=== PATIENT | female | born 1980 | race Caucasian/White ===

== ENCOUNTER 2020-08-25 13:36 | Outpatient (CLI) | payer MEDICARE, MEDICAID, SELFPAY ==
[2020-08-25 16:13] LABS: Basophils # 0.1 10^3/uL (0.0-0.1); Eosinophils % 0.4 %; Hematocrit 32.5 % (37.0-47.0); Hemoglobin 10.1 g/dL (11.5-15.3); Lymphocytes # 1.4 10^3/uL (0.8-4.8); Lymphocytes % 28.3 %; Mean Corpuscular HGB Conc 31.1 g/dL (30.0-36.0); Mean Corpuscular Hemoglobin 31.4 pg (28.0-34.0); Mean Corpuscular Volume 100.9 fL (81-99); Mean Platelet Volume 9.3 fL (7.4-10.4); Monocytes # 0.4 10^3/uL (0.2-0.9); Monocytes % 7.1 %; Neutrophils # 3.09 10^3/uL (1.8-7.7); Nucleated Red Blood Cells % 0 %; Platelet Count 421 10^3/cmm (130-400); Red Blood Count 3.22 10^6/uL (4.1-5.3); Red Cell Distribution Width 18.9 % (12.1-15.1); White Blood Count 4.9 10^3/uL (4.0-10.0)
[2020-08-25 16:51] LABS: Alanine Aminotransferase 18 U/L (0-33); Alkaline Phosphatase 75 IU/L (35-105); Anion Gap 12.3 (5-19); Aspartate Amino Transferase 28 U/L (0-32); Blood Urea Nitrogen 10 mg/dL (6-20); Calcium 9.4 mg/dL (8.5-10.5); Carbon Dioxide 28 mmol/L (22-29); Chloride 101 mmol/L (98-107); Globulin 2.8 g/dL (1.3-4.6); Glucose 89 mg/dL (65-115); Homocysteine 17.55; Osmolality Calculated 283 mOsm/kg (285-295); Potassium 4.3 mmol/L (3.5-5.1); Sodium 137 mmol/L (136-145); Total Bilirubin 0.2 mg/dL (0.15-1.2); Total Protein 6.8 g/dL (6.6-8.7); Vitamin B12 309 pg/mL (232-1245)
--- NOTE | 2020-08-25 18:14 | ONC CON_ITS ---
Dr. Guillen New Patient Note Patient: Nancy Nichols Unit #: [id number]: 1980 Dicatated By: Isaias Guillen M.D.Date of Visit: Aug 25, 2020 Onc MED New Patient/Consult Referring Physician: Brenda Diaz Chief Complaint: Anemia. History of Present Illness: This is a 40-year-old woman with iron deficiency anemia. She recalls having first become anemic at age 13 in association with heavy menstrual bleeding. It eventually did improve, though she said that she always stayed mildly anemic. Her anemia then worsened following her gastric bypass procedure in 2002. At some point she was found to have B12 deficiency and for a while she was on B12 injections. She was subsequently transitioned to sublingual B12. She also has been on oral iron supplementation, though not on a consistent basis. On 05/28/2020 she was seen by Gabriella Gamble with complaints of swelling in both legs. Her laboratory studies at that time included CBC which showed hemoglobin low at 8.8 g with hematocrit 29%. The red cell indices were in the upper normal range. The white blood cell count was mildly decreased at 3200. The platelet count was normal at 255,000. Comprehensive metabolic profile showed normal renal function with BUN 15 and creatinine 0.60 mg/dL. Albumin was slightly low at 3.2 g/dL. SGOT was slightly elevated at 40/37 U/L. The bilirubin and the other liver enzymes were normal. Her further laboratory studies from 06/04/2020 included serum iron studies which showed low transferrin saturation at 2.5% and serum ferritin which was low at 8 ng/mL, consistent with iron deficiency. The B12 level was normal at 509 pg/mL and the folate level was normal at 5.0 ng/mL. She complains that she is tired. She works part-time, but she otherwise does not have much activity. Her ECOG score is 1. Her appetite was down for a while and her weight dropped about 30 pounds, but that subsequently improved and she regained 20 pounds. She has not had fever. She does have hot flashes and sweating. She is short of breath with activity. She does not complain of cough and she has not been having chest pain. She has had constipation, though her bowel function recently has been better. She has no other GI complaints. In particular, she has not been aware of any blood in the stool. She has had some urinary urgency/incontinence, but that has also improved. She has chronic pain, and she says she hurts all the time. Her pain is mainly in the neck, lower back, and legs. She occasionally has bad headaches. She reports having numbness all the time, and she also complains that her skin has been very sensitive to touch. Past Medical History: Her medical history includes degenerative disease of the spine, history of B12 deficiency, and history of gastric bypass. Past Surgical History: Her surgical/procedural history includes pilonidal cyst excisions in 1993 and in 2000, cholecystectomy in 2015, hysterectomy/bilateral salpingectomy-oophorectomy in 2012, cervical fusion in 2006, lumbar laminectomy in 2004, gastric bypass in 2002, and D&C in 1993. Medications: Acetaminophen PM (500-25 mg) Tablet Oral at bedtime, Cyclobenzaprine HCl (10 mg) Tablet Oral t.i.d., Estrace Tablet Oral, traMADol HCl Tablet Oral, Triamterene-HCTZ Tablet Oral Allergies: No Known Allergies. Social History: Ms. 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 She has on partial disability. She has history of smoking for 24 years, less than 1 pack of cigarettes daily. She currently smokes from 6 to 12 cigarettes/day. 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 Since then she has had occasional, binge type drinking for several days at a time. She denies illicit drug use. Family History: Both parents are still living, father at age 74 and mother at age 66. His known cerebral aneurysm and hypertension. She has undergone aortic valve surgery. Her only sibling is a 45-year-old brother who has been treated for cardiac arrhythmia. Her maternal grandmother also had a cerebral aneurysm. Review Of Symptoms: Constitutional - She has been feeling tired. Her activity is limited, but she is able to do light work. Her appetite was down, and her weight had dropped about 30 pounds. It is better now, though, and she is regained 20 pounds. She has not had fever. She does have hot flashes and sweating. ECOG score is 1, Eyes - She has had blurred vision, ENMT - No hearing loss or tinnitus. No sinus congestion/drainage. Her mouth has been sore. No sore throat or difficulty swallowing, Hematologic/Lymphatic - No abnormal bruising or bleeding, Respiratory - She has shortness of breath with activity. No cough. No pleuritic pain or hemoptysis, Cardiovascular - No angina pain. No palpitations, Gastrointestinal - No nausea or vomiting. No heartburn or acid reflux. She has had some constipation, but her bowels lately have been okay. No blood in the stool or black stools, Genitourinary (F) - She has had some urinary urgency and incontinence. Her bladder function recently has been better, though, Musculoskeletal - She has chronic pain. She says she hurts all the time. The pain is mainly in the neck, lower back, and legs, Integumentary - No skin rash or other skin changes, Neurologic - She has occasional bad headaches. She sometimes has dizziness. She has numbness in her hands and feet. She also complains that her skin is very sensitive to touch, Psychiatric - No anxiety or depression. She has difficulty sleeping. Vital Signs: Performed on Aug 25, 2020 14:56: 6, 5, 0.00, 0.00 sq.m, 100 %, 77 /min, 18 /min, 126/93 mm(hg), 97.9 F (LOW), and 170.2 lbs (HIGH). Physical Examination: Constitutional - She looks pretty good generally, Eyes - Sclerae nonicteric. Conjunctivae clear, ENMT - There is a slight coating on the tongue. There are no other lesions noted in the oral cavity, Neck - No mass or thyromegaly, Hematologic/Lymphatic - No cervical, clavicular, or axillary adenopathy, Respiratory - Lungs are clear with good air movement bilaterally, Cardiovascular - Heart rhythm is regular. There is no murmur, gallop, or rub noted, Abdomen - Sof. Liver and spleen are not enlarged. There is no abdominal mass or ascites noted and there is no inguinal adenopathy, Extremities - Mild lower extremity edema. Pedal pulses are palpable bilaterally. There is a small, firm nodule palpable on the lateral aspect of the left foot, Integumentary - No rashes. No suspicious skin lesions noted, Neurologic - No focal neurologic deficits noted. Problem List: 1. Iron deficiency anemia. This is most likely due to inadequate oral iron absorption in association with gastric bypass. 2. She has a history of B12 deficiency for which she currently is on sublingual B12 replacement. 3. 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 Problems Addressed with this Encounter and Plan: 1. Iron deficiency anemia. This is most likely due to inadequate oral iron absorption in association with gastric bypass. GI blood loss also needs to be excluded, but appears to be unlikely. I will repeat her CBC and CMP today, but if the anemia is not correcting on oral iron supplementation, she will be given parenteral iron replacement with 2 infusions of Feraheme, subject to verification of insurance coverage. She also will bring in a stool sample for IFOB. She will have further evaluation as indicated. 2. She has a history of B12 deficiency for which she has been on sublingual B12 replacement. I am also going to recheck B12 and folate levels along with methylmalonic acid and homocystine levels. 3. She appears to have some mild oral candidiasis. It will be treated with oral nystatin. Signed By: Isaias Guillen M.D. <<Signature on File>>
[2020-08-30 09:42] LABS: Methylmalonic Acid 121 nmol/L (87-318)
== END 2020-08-25 13:37 | disposition home or self-care (01) ==
LOC: ONCMED 13:41
PROVIDERS: Family Provider Family Medicine; PCP Nurse Practitioner Family; Visit Provider Internal Medicine Medical Oncology
DX: D50.9 Iron deficiency anemia, unspecified (principal); E53.8 Deficiency of other specified B group vitamins; M48.9 Spondylopathy, unspecified; B37.0 Candidal stomatitis; R53.83 Other fatigue; F17.210 Nicotine dependence, cigarettes, uncomplicated; Z98.84 Bariatric surgery status; Z72.89 Other problems related to lifestyle
CPT/HCPCS: 36415; 80053; 82607; 83090; 83921; 84443; 85025; 99205

== ENCOUNTER 2020-09-05 09:50 | Emergency (ER) | payer MEDICARE, MEDICAID, SELFPAY ==
[2020-09-05 09:52] VITALS: BP 128/91; PULSE 92; RESP 16; TEMP 36.7; O2SAT 100; BMI 24.3
[2020-09-05 09:58] VITALS: BP 121/94; PULSE 93; RESP 16; O2SAT 100
--- NOTE | 2020-09-05 09:59 | ED_ITS ---
HPI - Anxiety General: Chief Complaint: Anxiety Stated Complaint: ANXIETY Time Seen by Provider: 09/05/20 09:52 History of Present Illness: HPI narrative: Patient is a 40-year-old female who comes to the ED via EMS with anxiety attack. EMS gave patient a dose of Ativan and upon arrival to ED her symptoms have resolved. Patient states she has a history of anxiety attacks and has alprazolam at home for acute anxiety. Patient says that she developed symptoms at work after she had a stressful conversation with her boss. After that conversation she started developing chest pain, shortness of breath, tingling sensation in the body and nausea. Here in the ED patient symptoms have completely resolved and says that after she got the Ativan in the ambulance she started feeling a lot better. She has a scheduled appointment with her PCP Dr. Guillne on September 09. Associated symptoms: Deny chest pain, chills, fever(s), headache(s), nausea, palpitations or vomiting Review of Systems Const: Denies: fever(s), chills or fatigue Eyes: Denies: change in vision or eye discomfort ENMT: Denies: throat pain, odynophagia, nasal discharge or nasal congestion Card: Denies: chest pain, palpitations, edema, swelling of feet/ankles, dyspnea on exertion or orthopnea Resp: Denies: dyspnea, productive cough or non-productive cough GI: Denies: abdominal pain, nausea, vomiting, diarrhea, constipation or hematochezia : Denies: flank pain, dysuria or hematuria Musc: Denies: neck pain, back pain or extremity swelling Skin/Breast: Denies: rash or new lesions Neuro: Denies: headache(s), numbness in extremities or weakness in extremities Psych: Reports: anxiety and panic attacks Physical Exam Const: COMMON NORMALS: no acute distress, patient oriented x3 and alert GENERAL APPEARANCE: cooperative and comfortable HENMT: COMMON NORMALS: normocephalic HEAD & SCALP: normocephalic MOUTH: Normal oral and palatal mucosa present THROAT: posterior oropharynx normal and uvula midline Neck/C-Spine: COMMON NORMALS: supple GENERAL: Yes normal visual inspection Resp: COMMON NORMALS: normal respiratory effort, No retractions, No use of a ccessory muscles and clear to auscultation bilaterally EFFORT & INSPECTION: Yes able to speak in complete sentences, No tachypneic, No respiratory distress and No labored AUSCULTATION: clear to auscultation bilaterally Cardio: COMMON NORMALS: regular rate, regular rhythm, S1 normal heart sound present, S2 normal heart sound present, No gallops present (Cardio), No clicks present (Cardio), No murmurs present (Cardio) and Peripheral pulses 2+ throughout RATE: regular rate RHYTHM: regular rhythm HEART SOUNDS: S1 normal heart sound present and S2 normal heart sound present PERIPHERAL PULSES: Peripheral pulses 2+ throughout GI: COMMON NORMALS: Normal to inspection, nondistended, normoactive bowel sounds present, Soft to palpation, non-tender and no masses PALPATION: Yes Soft to palpation : COMMON NORMALS: Yes no CVA tenderness BLADDER/KIDNEY EXAM: Yes no CVA tenderness Back/Pelvis: COMMON NORMALS: no CVA tenderness Extremity: COMMON NORMALS: normal to inspection and no pedal edema Neuro: COMMON NORMALS: patient oriented x3 and moves all extremities SENSORIUM/ORIENTATION: Yes alert Skin: GENERAL SKIN EXAM: dry skin Course Vital Signs: Vital signs: Vital Signs Temperature 98.1 F 09/05/20 09:52 Pulse Rate 101 H 09/05/20 11:32 Respiratory Rate 18 09/05/20 11:32 Blood Pressure 125/94 09/05/20 11:32 Pulse Oximetry 98 09/05/20 11:32 MDM - Anxiety MDM Narrative: Medical decision making narrative: Patient is a 40-year-old female comes to the ED with anxiety attack. Patient has a history of panic attacks. Patient developed symptoms of chest pain, nausea, shortness of breath and tingling sensation over body after having a stressful conversation with her boss. She was brought in here via EMS and they gave her a dose of Ativan while in route and patient's symptoms completely resolved. Here in the ED patient is sitting comfortably on exam bed and in no acute distress and reports symptoms have resolved. EKG showed normal sinus rhythm with no other acute findings. Patient was diagnosed with anxiety attack and discharged home. She is told to follow-up with her PCP at her next scheduled appointment. Return to ED precautions given. Patient understood and agree with plan. EKG Data^: EKG 1: Attestation: I personally reviewed and interpreted this EKG as follows: EKG interpretation date: 09/05/20 Interpretation: Normal sinus rhythm, 89 bpm, no ST segment elevation or depression seen. Discharge Plan Discharge Patient Disposition: Home Clinical Impression: Acute anxiety Condition: Stable Discharge Orders: Discharge ED (Routine); Ordered 09/05/20 Ordered By: Calvin Guevara Referrals: Chacha Enriquez APN [Primary Care Provider] - Discharge Diet: Regular Discharge Activity: Resume usual activity Patient Instructions: Anxiety (ED), Panic Attack Activity Restrictions/Additional Instructions: Follow-up with your PCP at your scheduled appointment next week for reevaluation. Continue taking all previously prescribed home medications. Return to the ER or your medical provider if condition worsens. Please read and understand discharge instructions. If any questions, please ask. Coding Level of Care Code ED Senior Government Program Analyst for [employer] Exam Comprehensive
--- NOTE | 2020-09-05 10:02 | ECG_ITS ---
[facility] Test Date: 2020-09-05 Pat Name: Nancy Nichols Department: Room: Gender: Female Rfid Developer: : 1980 Requested By: Calvin Guevara Order Number: [id number] Katelynn MD: Constantin Montalvo M.D. Measurements Intervals Hope Rate: 89 P: 66 TN: 150 QRS: 44 QRSD: 93 T: 54 QT: 336 QTc: 410 Interpretive Statements SINUS RHYTHM POSSIBLE RIGHT VENTRICULAR CONDUCTION DELAY [RSR (QR) IN V1/V2] No previous ECG available for comparison Electronically Signed On 09-05-2020 18:28:16 LSAT INSTRUCTOR by Constantin Montalvo M.D. [id number]
[2020-09-05 11:32] VITALS: BP 125/94; PULSE 101; RESP 18; O2SAT 98
[2020-09-05] MEDS: LORazepam 1 mg Tablet PO (11:33)
== END 2020-09-05 11:32 | disposition home or self-care (01) ==
PROVIDERS: Emergency Provider Physician Assistant; PCP Nurse Practitioner Family
DX: F41.9 Anxiety disorder, unspecified (principal)
CPT/HCPCS: 93005; 99283

== ENCOUNTER 2020-09-09 06:24 | Outpatient (CLI) | payer MEDICARE, MEDICAID, SELFPAY ==
[2020-09-09] MEDS: ferumoxytol (NON-ESRD) 510 MG in sodium chloride 0.9% (100 ml) 100 ML 351 MG IV (15:15)
== END 2020-09-09 06:25 | disposition home or self-care (01) ==
LOC: ONCMED 06:27
PROVIDERS: PCP Nurse Practitioner Family; Visit Provider Internal Medicine Medical Oncology
DX: D50.8 Other iron deficiency anemias (principal)
CPT/HCPCS: 96365; Q0138

== ENCOUNTER 2020-09-16 05:46 | Outpatient (CLI) | payer MEDICARE, MEDICAID, SELFPAY ==
[2020-09-16] MEDS: ferumoxytol (NON-ESRD) 510 MG in sodium chloride 0.9% (100 ml) 100 ML 351 MG IV (14:50)
== END 2020-09-16 05:47 | disposition home or self-care (01) ==
LOC: ONCMED 05:48
PROVIDERS: PCP Nurse Practitioner Family; Visit Provider Internal Medicine Hematology & Oncology
DX: D50.8 Other iron deficiency anemias (principal)
CPT/HCPCS: 96365; Q0138

== ENCOUNTER 2020-09-21 17:51 | Emergency (ER) | payer MEDICARE, SELFPAY ==
[2020-09-21 17:54] VITALS: BP 130/86; PULSE 112; RESP 18; TEMP 36.7; O2SAT 93; BMI 24.3
--- NOTE | 2020-09-21 18:55 | W.ED.BACK ---
HPI - Back Pain/Injury General: Chief Complaint: Back Pain/Injury Stated Complaint: PANIC ATTACK Time Seen by Provider: 09/21/20 18:23 History of Present Illness: HPI Narrative: Patient is a 40-year-old female comes to the ED with lower back pain and panic attack. Patient denies any acute injury to cause back pain states that she does have a chronic issue with lower back pain. She says the pain radiates down both legs. She says she often has panic attacks when she starts having more severe back pain. She says the panic and ask it triggered by the back pain. She is complaining of having some muscle spasms also in the lower back. Denies any bladder or bowel incontinence, pelvic anesthesia or weakness to lower extremities. Associated symptoms: Deny abdominal pain, chills, dysuria, fatigue, fever(s), hematuria, nausea or vomiting Review of Systems Const: Denies: fever(s), chills or fatigue Eyes: Denies: change in vision or eye discomfort ENMT: Denies: throat pain, odynophagia, nasal discharge or nasal congestion Card: Denies: chest pain, palpitations, edema, swelling of feet/ankles, dyspnea on exertion or orthopnea Resp: Denies: dyspnea, productive cough or non-productive cough GI: Denies: abdominal pain, nausea, vomiting, diarrhea, constipation or hematochezia : Denies: flank pain, dysuria or hematuria Musc: Reports: back pain; Denies: neck pain or extremity swelling Skin/Breast: Denies: rash or new lesions Neuro: Denies: headache(s), numbness in extremities or weakness in extremities Psych: Reports: anxiety Physical Exam Const: COMMON NORMALS: no acute distress, patient oriented x3 and alert GENERAL APPEARANCE: cooperative, comfortable and anxious HENMT: COMMON NORMALS: normocephalic HEAD & SCALP: normocephalic MOUTH: Normal oral and palatal mucosa present THROAT: posterior oropharynx normal and uvula midline Neck/C-Spine: COMMON NORMALS: supple GENERAL: Yes normal visual inspection Resp: COMMON NORMALS: normal respiratory effort, No retractions, No use of accessory muscles and clear to auscultation bilaterally AUSCULTATION: clear to auscultation bilaterally Cardio: COMMON NORMALS: regular rate, regular rhythm, S1 normal heart sound present, S2 normal heart sound present, No gallops present (Cardio), No clicks present (Cardio), No murmurs present (Cardio) and Peripheral pulses 2+ throughout RATE: regular rate RHYTHM: regular rhythm HEART SOUNDS: S1 normal heart sound present and S2 normal heart sound present PERIPHERAL PULSES: Peripheral pulses 2+ throughout GI: COMMON NORMALS: Normal to inspection, nondistended, normoactive bowel sounds present, Soft to palpation, non-tender and no masses PALPATION: Yes Soft to palpation : COMMON NORMALS: Yes no CVA tenderness BLADDER/KIDNEY EXAM: Yes no CVA tenderness Back/Pelvis: COMMON NORMALS: no CVA tenderness LUMBAR SPINE/LOWER BACK: Yes pain with ROM, Yes paraspinal muscle tenderness and Yes paraspinal muscle spasm Extremity: COMMON NORMALS: normal to inspection and no pedal edema Neuro: COMMON NORMALS: patient oriented x3 and moves all extremities SENSORIUM/ORIENTATION: Yes alert Skin: GENERAL SKIN EXAM: dry skin Course Vital Signs: Vital signs: Vital Signs Temperature 98.1 F 09/21/20 17:54 Pulse Rate 97 09/21/20 20:16 Respiratory Rate 18 09/21/20 20:16 Blood Pressure 139/92 09/21/20 20:16 Pulse Oximetry 98 09/21/20 20:16 MDM - Back Pain/Injury MDM Narrative: Medical decision making narrative: Patient is a 40-year-old female comes to the ED with lower anxiety, back pain and muscle spasms. Patient has acute on chronic lower back pain and she has pain that radiates down both right and left legs. Denies any acute trauma or injury to cause pain. Denies any cauda equina symptoms. Patient has lumbar paraspinal muscle tenderness. Lumbar spine x-ray shows no acute fractures but patient does have scoliosis. Patient was given some Ativan, Toradol and Solu-Medrol here in the ED. Her symptoms improved. Patient was discharged and diagnosed with acute anxiety and lumbar radiculopathy. She was told to follow-up with her PCP in 7 to 10 days for reevaluation. Return to ED precautions given. Patient understood and agree with plan. Imaging Data^: Xray Ortho: Attestation: I personally reviewed and interpreted this imaging study as follows: My impression: Lumbar spine x-ray?no acute fractures seen. Patient does have scoliosis. Discharge Plan Discharge Patient Disposition: Home Clinical Impression: Lumbar radiculopathy, Acute anxiety Condition: Stable Prescriptions: New Medrol (Stewart) 4 mg tablets,dose pack See Rx Instructions .ROUTE .COMPLEX Qty: 21 RF: 0 Discharge Orders: Discharge ED (Routine); Ordered 09/21/20 Ordered By: Calvin Guevara Referrals: Chacha Enriquez APN [Primary Care Provider] - Discharge Diet: Regular Discharge Activity: Increase activity as tolerated Patient Instructions: Lumbar Radiculopathy (ED), Anxiety (ED) Activity Restrictions/Additional Instructions: Follow-up with medical provider as directed in 7 to 10 days for reevaluation. Take medications as prescribed. Continue taking all your previously prescribed home meds. Apply cold pack or heat on back to help with symptoms. Return to the ER or your medical provider if condition worsens. Please read and understand discharge instructions. If any questions, please ask. Coding Level of Care Code ED Automobile Rental Clerk for [employer] Exam Comprehensive
--- NOTE | 2020-09-21 19:04 | XR_ITS ---
WS: [id number] LUMBAR SPINE: 3 VIEWS TECHNIQUE: AP, lateral and L5-S1 spot. HISTORY: lower back pain COMPARISON: 04/06/2017 Progression of LEFT rotary scoliosis of the lumbar curvature. Asymmetric disc space narrowing due to the scoliosis. Diffuse osteopenia. L1 mild compression deformity involving the superior endplate is u nchanged since 2017. No new fracture is appreciated. Disc spaces are narrowed. SI joints are symmetric bilaterally. No soft tissue abnormalities. Prior cholecystectomy. XR/XR lumbar spine 2-3V* [id number] IMPRESSION: 1. Remote L1 minimal compression deformity stable since 2017. 2. Progression degenerative rotary scoliosis to the LEFT.
[2020-09-21] MEDS: LORazepam 1 mg Tablet PO (19:38)
[2020-09-21] MEDS: ketorolac 60 mg/2 mL INJ IM (19:44)
[2020-09-21 20:16] VITALS: BP 139/92; PULSE 97; RESP 18; O2SAT 98
== END 2020-09-21 20:17 | disposition home or self-care (01) ==
PROVIDERS: Emergency Provider Physician Assistant; PCP Nurse Practitioner Family
DX: F41.9 Anxiety disorder, unspecified (principal); M54.16 Radiculopathy, lumbar region
CPT/HCPCS: 72100; 96372; 99283; J1885; J2930

== ENCOUNTER 2020-10-16 14:35 | Outpatient (CLI) | payer MEDICARE, MEDICAID, SELFPAY ==
[2020-10-16 16:05] LABS: Basophils % 0.7 %; Eosinophils % 0.3 %; Hematocrit 38.3 % (37.0-47.0); Hemoglobin 12.4 g/dL (11.5-15.3); Lymphocytes # 1.3 10^3/uL (0.8-4.8); Lymphocytes % 21.8 %; Mean Corpuscular HGB Conc 32.4 g/dL (30.0-36.0); Mean Corpuscular Hemoglobin 34.4 pg (28.0-34.0); Mean Corpuscular Volume 106.4 fL (81-99); Mean Platelet Volume 10.1 fL (7.4-10.4); Monocytes # 0.3 10^3/uL (0.2-0.9); Neutrophils # 4.36 10^3/uL (1.8-7.7); Neutrophils % 70.9 %; Nucleated Red Blood Cells % 0 %; Platelet Count 169 10^3/cmm (130-400); White Blood Count 6.2 10^3/uL (4.0-10.0)
[2020-10-16 16:21] LABS: Alanine Aminotransferase 35 U/L (0-33); Alkaline Phosphatase 100 IU/L (35-105); Aspartate Amino Transferase 37 U/L (0-32); Blood Urea Nitrogen 19 mg/dL (6-20); Calcium 8.8 mg/dL (8.5-10.5); Carbon Dioxide 25 mmol/L (22-29); Chloride 100 mmol/L (98-107); Globulin 1.9 g/dL (1.3-4.6); Glucose 145 mg/dL (65-115); Iron 56 ug/dL (37-145); Osmolality Calculated 285 mOsm/kg (285-295); Percent Saturation 23.7 % (20-50); Sodium 135 mmol/L (136-145); Total Bilirubin 0.3 mg/dL (0.15-1.2); Total Iron Binding Capacity 236 mcg/dl; Total Protein 5.9 g/dL (6.6-8.7); Unsaturated Iron Binding 180 ug/dL (112-347)
[2020-10-16 17:13] LABS: Magnesium 1.7 mg/dL (1.7-2.3)
--- NOTE | 2020-10-18 13:50 | ONC FU_ITS ---
Dr. Guillen Patient Follow-Up Note Patient: Nancy Nichols Unit #: [id number]: 1980 Dicatated By: Isaias Guillen M.D.Date of Visit:Oct 16, 2020 Onc Med Follow-up/Prog Note Chief Complaint: Anemia. History of Present Illness: This is a 40-year-old woman with iron deficiency anemia. She recalls having first become anemic at age 13 in association with heavy menstrual bleeding. It eventually did improve, though she said that she always stayed mildly anemic. Her anemia then worsened following her gastric bypass procedure in 2002. At some point she was found to have B12 deficiency and for a while she was on B12 injections. She was subsequently transitioned to sublingual B12. She also has been on oral iron supplementation, though not on a consistent basis. On 05/28/2020 she was seen by Gabriella Gamble with complaints of swelling in both legs. Her laboratory studies at that time included CBC which showed hemoglobin low at 8.8 g with hematocrit 29%. The red cell indices were in the upper normal range. The white blood cell count was mildly decreased at 3200. The platelet count was normal at 255,000. Comprehensive metabolic profile showed normal renal function with BUN 15 and creatinine 0.60 mg/dL. Albumin was slightly low at 3.2 g/dL. SGOT was slightly elevated at 40/37 U/L. The bilirubin and the other liver enzymes were normal. Her further laboratory studies from 06/04/2020 included serum iron studies which showed low transferrin saturation at 2.5% and serum ferritin which was low at 8 ng/mL, consistent with iron deficiency. The B12 level was normal at 509 pg/mL and the folate level was normal at 5.0 ng/mL. I had seen her initially on 08/25/2020. At that time she was complaining of fatigue and she also reported being short of breath with activity. She reported having chronic pain in multiple sites including the neck, lower back, and lower extremities. As her anemia was not correcting on oral iron supplementation, she was given parenteral iron replacement with 2 infusions of Feraheme. She is seen for a follow-up visit. She had no adverse effects with the Feraheme infusions last month. However, she says she really is not feeling any better. She continues to have fatigue. She says she is still working, but she otherwise is sleeping a lot. Her ECOG score is 1. Her appetite is not very good. By our scale she has lost weight. She does not have fever. She does have hot flashes and she recently had one episode of waking up drenched in sweat. She was having pretty bad sinus congestion, but that recently broke loose. She has a scratchy throat. She says she has always had a breathing problem and she is sometimes very short of breath. She did notice improvement though when she used an inhaler. She was having cough, but that is better now. She does not complain of chest pain. She occasionally has a little nausea. She recently has had some diarrhea. Bladder function has been okay, but she does report having intermittent swelling. She continues to have a lot of pain. The most significant has been in her left knee, which sometimes feels like it is going to give way. She also reports having muscle spasms real bad, pretty much all over. She has neck pain and she reports having a tingling, stinging pain from her neck down to her toes. She feels knots on her right shoulder and in both feet. Medications: Acetaminophen PM (500-25 mg) Tablet Oral at bedtime, Cyclobenzaprine HCl (10 mg) Tablet Oral t.i.d., Estrace Tablet Oral, traMADol HCl Tablet Oral, Triamterene-HCTZ Tablet Oral Allergies: No Known Allergies. Vital Signs: Performed on Oct 16, 2020 15:57 Height - 70 in Weight - 156.4 lbs (LOW) BSA - 1.88 sq.m BMI - 22.44 Temperature - 99.6 F (HIGH) Pulse - 112 /min (HIGH) Respiration - 16 /min BP - 128/90 mm(hg) O2 Sat - 89 % (LOW) Pain - 6 Physical Examination: Constitutional - She looks pretty good generally, Eyes - Sclerae nonicteric. Conjunctivae clear, ENMT - No lesions noted in the oral cavity, Hematologic/Lymphatic - No cervical, clavicular, or axillary adenopathy, Respiratory - Lungs are clear with good air movement bilaterally, Cardiovascular - Heart rhythm is regular. There is no murmur, gallop, or rub noted, Abdomen - Sof. Liver and spleen are not enlarged. There is no abdominal mass or ascites noted and there is no inguinal adenopathy, Extremities - Mild lower extremity edema. Pedal pulses are palpable bilaterally. There are 2 small, firm nodules palpable on the lateral aspect of the left foot. There is an additional small nodule palpable at the distal right clavicle. It is tender to palpation, Neurologic - No focal neurologic deficits noted. Lab/Imaging: Test performed on Oct 16, 2020 15:15 Iron 56 mcg/dL Magnesium 1.7 mg/dL Sodium 135 mmol/L Iron Binding Capacity (TIBC) 236 mcg/dl Potassium 4.0 mmol/L % Iron Saturation 23.7 % Chloride 100 mmol/L CO2 25 mmol/L UIBC 180 mcg/dL Anion Gap 14.0 BUN 19 mg/dL Creatinine 0.8 mg/dL Cr Clearance (Est) 103.6400 mL/min eGFR 79.0 mL/min Glucose 145 mg/dL Osmolality - Calculated 285 mOsm/kg Calcium 8.8 mg/dL Protein, Total 5.9 g/dL Albumin 4.0 g/dL Globulin 1.9 g/dL Bilirubin, Total 0.3 mg/dL ALT (SGPT) 35 U/L AST (SGOT) 37 U/L Alkaline Phosphatase 100 IU/L WBC 6.2 10 3/uL RBC 3.60 10 6/uL HGB 12.4 g/dL HCT 38.3 % MCV 106.4 fL MCH 34.4 pg MCHC 32.4 g/dL RDW 19.0 % Platelet Count 169 10 3/cmm MPV 10.1 fL Neutrophils 4.36 10 3/uL Lymphocytes 1.3 10 3/uL Monocytes 0.3 10 3/uL Eosinophils 0.0 10 3/uL Basophils 0.0 10 3/uL Neutrophil % 70.9 % Lymphocyte % 21.8 % Monocyte % 5.0 % Eosinophil % 0.3 % Basophils % 0.7 % NRBC % 0 % Problem List: 1. Iron deficiency anemia. This is most likely due to inadequate oral iron absorption in association with gastric bypass. 2. She has a history of B12 deficiency for which she currently is on sublingual B12 replacement. 3. 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 Problems Addressed with this Encounter and Plan: 1. Iron deficiency anemia. This is most likely due to inadequate oral iron absorption in association with gastric bypass. GI blood loss has not been entirely excluded. As yet she has not brought in her stool sample for iFOB, that will be requested again. In the meantime, she has been given parenteral iron replacement with Injectafer. She has had a significant increase in her hemoglobin/hematocrit levels, and there has been improvement in her transferrin saturation. However, she has not had any associated symptomatic improvement, as she continues to have significant fatigue and shortness of breath. At least for now I will just have her continue her vitamin daily. I will have her return in 1 month for repeat lab studies and office visit. 2. She has a history of B12 deficiency for which she has been on sublingual B12 replacement. She was found to have a normal B12 level and normal methylmalonic acid level. 3. She is reporting generalized muscle cramping and has symptoms which are suggestive of neuropathy. I treat her empirically with gabapentin, initially at 300 mg twice daily. 4. She has pain in her left knee and she has small nodules palpable on both feet and on the distal left clavicle. As such, I will order x-rays of her shoulders, left knee, and both feet. She will further evaluation as indicated. Signed By: Isaias Guillen M.D. <<Signature on File>>
== END 2020-10-16 14:36 | disposition home or self-care (01) ==
PROVIDERS: PCP Nurse Practitioner Family; Visit Provider Internal Medicine Medical Oncology
DX: D50.9 Iron deficiency anemia, unspecified (principal); K90.9 Intestinal malabsorption, unspecified; D51.9 Vitamin B12 deficiency anemia, unspecified; G89.29 Other chronic pain; M47.9 Spondylosis, unspecified; Z79.899 Other long term (current) drug therapy
CPT/HCPCS: 36415; 80053; 83540; 83550; 83735; 85025; 99214

== ENCOUNTER 2020-10-21 12:05 | Outpatient (CLI) | payer MEDICARE, MEDICAID, SELFPAY ==
--- NOTE | 2020-10-21 12:18 | XRR_ITS ---
PROCEDURE INFORMATION: Exam: XR Left Shoulder Exam date and time: 10/21/2020 12:24 PM Age: 40 years old Clinical indication: Pain; Shoulder; Bilateral; Additional info: Pain in shoulders TECHNIQUE: Imaging protocol: XR Left shoulder. Views: 2 or more views. COMPARISON: CR XR shoulder RT min 2V* [id number] 10/21/2020 12:30 PM FINDINGS: Bones/joints: Osseous structures of the shoulder are grossly normal. Acromioclavicular joint is without dislocation or fracture. Subacromial space height is normal. Adjacent ribs are normal. Glenohumeral joint, clavicle, acromion, and coracoid process appear grossly normal. Ossific density adjacent to the greater tuberosity. Possible loose body. 10 mm. Possible calcific tendinosis. Correlate with CT. Soft tissues: Normal. XR/XR shoulder LT min 2V* [id number] IMPRESSION: Ossific density adjacent to the greater tuberosity. Possible loose body. 10 mm. Possible calcific tendinosis. Correlate with CT.
--- NOTE | 2020-10-21 12:18 | XRR_ITS ---
PROCEDURE INFORMATION: Exam: XR Right Shoulder Exam date and time: 10/21/2020 12:24 PM Age: 40 years old Clinical indication: Pain; Shoulder; Bilateral; Additional info: Pain in shoulders TECHNIQUE: Imaging protocol: XR Right shoulder. Views: 2 or more views. COMPARISON: No relevant prior studies available. FINDINGS: Bones/joints: Osseous structures of the shoulder are grossly normal. Acromioclavicular joint is without dislocation or fracture. Subacromial space height is normal. Adjacent ribs are normal. Glenohumeral joint, clavicle, acromion, and coracoid process appear grossly normal. Soft tissues: Normal. XR/XR shoulder RT min 2V* [id number] IMPRESSION: Normal shoulder.
--- NOTE | 2020-10-21 12:19 | XRR_ITS ---
PROCEDURE INFORMATION: Exam: XR Left Knee Exam date and time: 10/21/2020 12:24 PM Age: 40 years old Clinical indication: Pain; Swelling or effusion of joint; Knee; Left; Additional info: Pain, swelling left knee TECHNIQUE: Imaging protocol: XR Left knee. Views: 3 views. COMPARISON: No relevant prior studies available. FINDINGS: Bones/joints: Osseous structures of the knee normal. No fracture. No joint effusion. Soft tissues unremarkable. Soft tissues: See Bones/joints finding. XR/XR knee LT 3V* [id number] IMPRESSION: Normal knee.
--- NOTE | 2020-10-21 12:20 | XRR_ITS ---
PROCEDURE INFORMATION: Exam: XR Right Foot Exam date and time: 10/21/2020 12:24 PM Age: 40 years old Clinical indication: Pain; Other: Knots in both feet; Foot; Bilateral; Additional info: Painful knots in both feet TECHNIQUE: Imaging protocol: XR Right foot. Views: 3 or more views. COMPARISON: No relevant prior studies available. FINDINGS: Bones/joints: hindfoot-midfoot and midfoot-forefoot articulations are normal. metatarsals and the phalanges without an acute process. subtalar joint and the tibiotalar joint appears normal. Soft tissues: Normal. XR/XR foot RT min 3V* [id number] IMPRESSION: Normal foot
--- NOTE | 2020-10-21 12:20 | XRR_ITS ---
PROCEDURE INFORMATION: Exam: XR Left Foot Exam date and time: 10/21/2020 12:24 PM Age: 40 years old Clinical indication: Pain; Other: Knots in both feet; Foot; Bilateral; Additional info: Painful knots in both feet TECHNIQUE: Imaging protocol: XR Left foot. Views: 3 or more views. COMPARISON: No relevant prior studies available. FINDINGS: Bones/joints: Inhindfoot-midfoot and midfoot-forefoot articulations are normal. metatarsals and the phalanges without an acute process. subtalar joint and the tibiotalar joint appears normal. Soft tissues: Normal. XR/XR foot LT min 3V* [id number] IMPRESSION: Normal foot
== END 2020-10-21 12:06 | disposition home or self-care (01) ==
PROVIDERS: PCP Nurse Practitioner Family; Visit Provider Internal Medicine Medical Oncology
DX: M79.672 Pain in left foot (principal); M79.671 Pain in right foot; M25.512 Pain in left shoulder; M25.511 Pain in right shoulder; M25.562 Pain in left knee
CPT/HCPCS: 73030; 73562; 73630

== ENCOUNTER 2020-11-17 09:21 | Outpatient (CLI) | payer MEDICARE, MEDICAID, SELFPAY ==
[2020-11-17 10:01] LABS: Basophils % 0.4 %; Eosinophils % 0.4 %; Hematocrit 39.6 % (37.0-47.0); Hemoglobin 12.9 g/dL (11.5-15.3); Lymphocytes # 1.7 10^3/uL (0.8-4.8); Lymphocytes % 37.1 %; Mean Corpuscular HGB Conc 32.6 g/dL (30.0-36.0); Mean Corpuscular Hemoglobin 34.7 pg (28.0-34.0); Mean Corpuscular Volume 106.5 fL (81-99); Mean Platelet Volume 8.9 fL (7.4-10.4); Monocytes # 0.3 10^3/uL (0.2-0.9); Monocytes % 6.1 %; Neutrophils # 2.51 10^3/uL (1.8-7.7); Neutrophils % 55.1 %; Nucleated Red Blood Cells % 0 %; Platelet Count 407 10^3/cmm (130-400); Red Blood Count 3.72 10^6/uL (4.1-5.3); Red Cell Distribution Width 17.2 % (12.1-15.1); White Blood Count 4.6 10^3/uL (4.0-10.0)
[2020-11-17 10:46] LABS: Alanine Aminotransferase 86 U/L (0-33); Alkaline Phosphatase 106 IU/L (35-105); Anion Gap 13.5 (5-19); Aspartate Amino Transferase 36 U/L (0-32); Blood Urea Nitrogen 13 mg/dL (6-20); Calcium 8.8 mg/dL (8.5-10.5); Carbon Dioxide 26 mmol/L (22-29); Chloride 104 mmol/L (98-107); Ferritin 398 ng/mL (15-150); Globulin 2.6 g/dL (1.3-4.6); Glomerular Filtration Rate 92.2 mL/min (90-130); Glucose 81 mg/dL (65-115); Homocysteine 22.88; Iron 63 ug/dL (37-145); Lactate Dehydrogenase 123 U/L (135-214); Osmolality Calculated 287 mOsm/kg (285-295); Percent Saturation 22.8 % (20-50); Potassium 4.5 mmol/L (3.5-5.1); Sodium 139 mmol/L (136-145); Total Bilirubin 0.2 mg/dL (0.15-1.2); Total Iron Binding Capacity 276 mcg/dl; Total Protein 6.6 g/dL (6.6-8.7); Unsaturated Iron Binding 213 ug/dL (112-347); Vitamin B12 1379 pg/mL (232-1245)
[2020-11-17 10:48] LABS: Folate Level 18.1 ng/mL (4.8-37.3)
[2020-11-17 10:56] LABS: Erythrocyte Sedimentation Rate 11 mm/hr (0-15)
[2020-11-21 16:58] LABS: Methylmalonic Acid 117 nmol/L (87-318)
== END 2020-11-17 09:22 | disposition home or self-care (01) ==
LOC: ONCMED 09:24
PROVIDERS: PCP Nurse Practitioner Family; Visit Provider Internal Medicine Medical Oncology
DX: D50.9 Iron deficiency anemia, unspecified (principal); D51.9 Vitamin B12 deficiency anemia, unspecified; Z13.6 Encounter for screening for cardiovascular disorders
CPT/HCPCS: 80053; 82607; 82728; 82746; 83090; 83540; 83550; 83615; 83921; 85025; 85651

== ENCOUNTER 2020-12-08 14:27 | Outpatient (CLI) | payer MEDICARE, MEDICAID, SELFPAY ==
[2020-12-08 16:29] LABS: Basophils % 0.5 %; Eosinophils # 0.1 10^3/uL (0.0-0.8); Eosinophils % 2.2 %; Hematocrit 37.8 % (37.0-47.0); Hemoglobin 12.7 g/dL (11.5-15.3); Lymphocytes # 1.5 10^3/uL (0.8-4.8); Lymphocytes % 24.6 %; Mean Corpuscular HGB Conc 33.6 g/dL (30.0-36.0); Mean Corpuscular Hemoglobin 35.2 pg (28.0-34.0); Mean Corpuscular Volume 104.7 fL (81-99); Mean Platelet Volume 9.1 fL (7.4-10.4); Monocytes # 0.4 10^3/uL (0.2-0.9); Monocytes % 6.5 %; Neutrophils # 3.87 10^3/uL (1.8-7.7); Neutrophils % 65.7 %; Nucleated Red Blood Cells % 0 %; Platelet Count 294 10^3/cmm (130-400); Red Blood Count 3.61 10^6/uL (4.1-5.3); White Blood Count 5.9 10^3/uL (4.0-10.0)
[2020-12-08 16:40] LABS: Alanine Aminotransferase 38 U/L (0-33); Albumin Level 4.6 g/dL (3.5-5.2); Alkaline Phosphatase 142 IU/L (35-105); Anion Gap 31.1 (5-19); Aspartate Amino Transferase 72 U/L (0-32); Blood Urea Nitrogen 9 mg/dL (6-20); Calcium 8.1 mg/dL (8.5-10.5); Carbon Dioxide 18 mmol/L (22-29); Chloride 89 mmol/L (98-107); Globulin 2.3 g/dL (1.3-4.6); Glomerular Filtration Rate 175.9 mL/min (90-130); Glucose 59 mg/dL (65-115); Osmolality Calculated 274 mOsm/kg (285-295); Potassium 4.1 mmol/L (3.5-5.1); Sodium 134 mmol/L (136-145); Total Bilirubin 0.5 mg/dL (0.15-1.2); Total Protein 6.9 g/dL (6.6-8.7)
[2020-12-08 17:05] LABS: Hepatitis B Core AB, Total Non-Reactive (Nonreactive); Hepatitis B Surface AB 32.8 (11.5-1000); Hepatitis B Surface Antigen Non-Reactive (Nonreactive); Hepatitis C Virus Antibody Non-Reactive (Nonreactive)
[2020-12-08 19:50] LABS: Ferritin 687 ng/mL (15-150); Iron 82 ug/dL (37-145); Percent Saturation 32.9 % (20-50); Total Iron Binding Capacity 249 mcg/dl; Unsaturated Iron Binding 167 ug/dL (112-347)
[2020-12-09 08:38] LABS: Hepatitis A Antibody IgM Non-Reactive (Nonreactive)
--- NOTE | 2020-12-09 08:40 | ONC FU_ITS ---
Dr. Guillen Patient Follow-Up Note Patient: Nancy Nichols Unit #: [id number]: 1980 Dicatated By: Isaias Guillen M.D.Date of Visit:Dec 08, 2020 Onc Med Follow-up/Prog Note Chief Complaint: Anemia. History of Present Illness: This is a 40-year-old woman with iron deficiency anemia. She recalls having first become anemic at age 13 in association with heavy menstrual bleeding. It eventually did improve, though she said that she always stayed mildly anemic. Her anemia then worsened following her gastric bypass procedure in 2002. At some point she was found to have B12 deficiency and for a while she was on B12 injections. She was subsequently transitioned to sublingual B12. She also has been on oral iron supplementation, though not on a consistent basis. On 05/28/2020 she was seen by Gabriella Gamble with complaints of swelling in both legs. Her laboratory studies at that time included CBC which showed hemoglobin low at 8.8 g with hematocrit 29%. The red cell indices were in the upper normal range. The white blood cell count was mildly decreased at 3200. The platelet count was normal at 255,000. Comprehensive metabolic profile showed normal renal function with BUN 15 and creatinine 0.60 mg/dL. Albumin was slightly low at 3.2 g/dL. SGOT was slightly elevated at 40/37 U/L. The bilirubin and the other liver enzymes were normal. Her further laboratory studies from 06/04/2020 included serum iron studies which showed low transferrin saturation at 2.5% and serum ferritin which was low at 8 ng/mL, consistent with iron deficiency. The B12 level was normal at 509 pg/mL and the folate level was normal at 5.0 ng/mL. I had seen her initially on 08/25/2020. At that time she was complaining of fatigue and she also reported being short of breath with activity. She reported having chronic pain in multiple sites including the neck, lower back, and lower extremities. As her anemia was not correcting on oral iron supplementation, she was given parenteral iron replacement with 2 infusions of Feraheme, completed on 09/16/2020. Her medical history is otherwise significant for degenerative disease of the spine with chronic back pain. Her prior surgeries also include lumbar laminectomy in 2004 and cervical fusion in 2006. She has a history of smoking beginning at age 16, less than a pack of cigarettes daily. She currently smokes from 6 to 12 cigarettes/day. She had heavy alcohol use from her late 20s extending into her early 30s. She has since then had occasional, binge type alcohol use lasting for several days at a time. INTERIM HISTORY: I had seen her for a follow-up visit on 10/16/2020. Her repeat CBC showed hemoglobin adequate at 12.4 g with hematocrit 38 percent. The red cell indices were mildly macrocytic. The white blood cell count was 6200 and the platelet count was 169,000. Her serum iron studies show transferrin saturation in the low normal range at 23.7%. Despite those improvements, she continues to complain of significant fatigue. She had pain in multiple areas and she also complained of having real bad muscle spasms. She was recommended to continue a vitamin daily along with her oral B12 supplement. I also had her start gabapentin for what appeared to be neuropathy pain. She is seen now for a follow-up visit. She says her energy is okay, at least to the extent that she is able to do light work. Her ECOG score is 1. She does not have good appetite. She says she does not eat much. Her weight is down a few pounds. She has not had fever or night sweats. She has occasional hot flashes. She is a little short of breath on occasion. She does not complain of cough and she has not been having chest pain. She has no GI or complaints. She says she is always sore, particularly in her back and shoulders. She says her feet always hurt and she has numbness/tingling in her hands and feet. She has anxiety and depression, and she says that is getting worse. Her mother is very concerned about the fact that she has continued to have binge type drinking, and she apparently has been on another binge just very recently. Medications: Acetaminophen PM (500-25 mg) Tablet Oral at bedtime, Cyclobenzaprine HCl (10 mg) Tablet Oral t.i.d., Estrace Tablet Oral, traMADol HCl Tablet Oral, Triamterene-HCTZ Tablet Oral Allergies: No Known Allergies. Vital Signs: Performed on Dec 08, 2020 14:55 Height - 70.00 in Weight - 153 lbs (LOW) BSA - 1.86 sq.m BMI - 21.95 Temperature - 98.6 F Pulse - 120 /min (HIGH) Respiration - 18 /min BP - 131/94 mm(hg) O2 Sat - 95 % (LOW) Pain - 6 Fatigue - 0 Physical Examination: Constitutional - She looks pretty good generally, Eyes - Sclerae nonicteric. Conjunctivae clear, ENMT - No lesions noted in the oral cavity, Hematologic/Lymphatic - No cervical, clavicular, or axillary adenopathy, Respiratory - Lungs are clear with good air movement bilaterally, Cardiovascular - Heart rhythm is regular with mild tachycardia. There is no murmur, gallop, or rub noted, Abdomen - Soft. Liver ia not enlarged or tender. Spleen is not palpable. There is no abdominal mass or ascites noted and there is no inguinal adenopathy, Back/Spine - There is significant bony tenderness involving the mid and upper spine, Extremities - No edema, Neurologic - No focal neurologic deficits noted. Problem List: 1. Iron deficiency anemia. This is most likely due to inadequate oral iron absorption in association with gastric bypass. 2. She has a history of B12 deficiency for which she currently is on sublingual B12 replacement. 3. 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 Problems Addressed with this Encounter and Plan: 1. Patient with iron deficiency anemia, most likely due to inadequate oral iron absorption in association with gastric bypass. She was given parenteral iron replacement with Feraheme in September 2020. During followup she has had a significant increase in her hemoglobin/hematocrit levels, and there has been improvement in her transferrin saturation and ferritin. She has continued, though, to report significant fatigue. She also has persistent tachycardia and she has had shortness of breath. The cause for this is uncertain, but it did appear that her iron deficiency had been adequately corrected with the parenteral iron. She will have repeat laboratory studies today, and she will be scheduled now for an echocardiogram. She will further evaluation as indicated. I will tentatively plan a follow-up visit in 3 months. 2. She has a history of B12 deficiency for which she is now on oral B12 replacement. She was found to have normal B12 and normal methylmalonic acid levels. 3. She has symptoms suggestive of neuropathy, for which she began empiric treatment with gabapentin. 4. She has a history of heavy drinking in her late 20s and extending into her early 30s, and she has since then continued to have occasional binge type alcohol use. She has mildly elevated liver enzymes. This is probably alcohol related, but as a precaution I am going to check a viral hepatitis profile and she also will be scheduled for CT abdomen/pelvis. She will have further evaluation as indicated. Signed By: Isaias Guillen M.D. <<Signature on File>>
== END 2020-12-08 14:28 | disposition home or self-care (01) ==
LOC: ONCMED 14:28
PROVIDERS: PCP Nurse Practitioner Family; Visit Provider Internal Medicine Medical Oncology
DX: D50.9 Iron deficiency anemia, unspecified (principal); E53.8 Deficiency of other specified B group vitamins; M47.9 Spondylosis, unspecified; Z98.84 Bariatric surgery status; Z79.899 Other long term (current) drug therapy; R94.5 Abnormal results of liver function studies; F10.11 Alcohol abuse, in remission
CPT/HCPCS: 36415; 80053; 82728; 83540; 83550; 85025; 86705; 86706; 86709; 86803; 87340; 99214

== ENCOUNTER 2020-12-22 13:22 | Outpatient (CLI) | payer MEDICARE, MEDICAID, SELFPAY ==
--- NOTE | 2020-12-22 13:34 | CTR_ITS ---
PROCEDURE INFORMATION: Exam: CT Abdomen And Pelvis With Contrast Exam date and time: 12/22/2020 1:34 PM Age: 40 years old Clinical indication: Abnormal findings; Abnormal lab test; Elevated liver enzymes; Prior surgery; Surgery type: Gb, tummy tuck TECHNIQUE: Imaging protocol: Computed tomography of the abdomen and pelvis with contrast. Total images: 246 Radiation optimization: All CT scans at this facility use at least one of these dose optimization techniques: automated exposure control; mA and/or kV adjustment per patient size (includes targeted exams where dose is matched to clinical indication); or iterative reconstruction. Contrast material: OMNI 300; Contrast volume: 95 ml; Contrast route: INTRAVENOUS (IV); COMPARISON: CT abdomen pelvis w con* [id number] 04/06/2017 1:46 AM RADIATION DOSE METRICS: Total DLP (mGy-cm): 1168.99 FINDINGS: Lungs: Limited assessment of the lung bases fails to reveal evidence for active cardiopulmonary process. Liver: No visible hepatic mass or cystic structure. Gallbladder and bile ducts: Status post cholecystectomy. No visible intra or extrahepatic biliary ectasia. Pancreas: Pancreas is unremarkable. No visible pancreatic ductal ectasia. Spleen: Spleen unremarkable. Adrenal glands: Adrenal glands unremarkable. Kidneys and ureters: No hydronephrosis or perinephric fluid. No visible nephrolithiasis. No visible ureterolithiasis. Stomach and bowel: Status post gastroplasty. Moderately ectatic loops of jejunum with increased mucosal thickening suggesting the potential for mild jejunitis. Nonobstructive bowel pattern. No visible evidence for significant adynamic or reactive ileus. Appendix: The appendix is visualized and appears noninflamed. Intraperitoneal space: No visible evidence of mesenteric lymphadenitis or active mesenteritis/panniculitis. No visible pneumoperitoneum or intraperitoneal ascites. Vasculature: Portal vein patent. The abdominal aorta is nonaneurysmal. Lymph nodes: No current visible evidence of active mesenteric or retroperitoneal lymphadenopathy. Urinary bladder: Urinary bladder unremarkable. Reproductive: Status post hysterectomy. Bones/joints: No visible active or acute osseous pathology. Old mild superior endplate deformity L1. Degenerative disc disease with disc space height loss and vacuum disc phenomenon and associated spondylosis deformans L3/4 and L4/L5. Levoscoliosis. Soft tissues: Unremarkable. CT/CT abdomen pelvis w con* [id number] IMPRESSION: 1. Moderately ectatic loops of jejunum with increased mucosal thickening suggesting the potential for mild jejunitis. Please correlate with clinical presentation. 2. No visible hepatic mass or cystic structure. 3. No visible intra or extrahepatic biliary ectasia. 4. Status post cholecystectomy. 5. Status post gastroplasty. 6. Status post hysterectomy. 7. Other nonurgent, nonemergent, chronic, and age related findings as detailed in text above. Radiation Dose CTDIVOL = (mGy): DLP = 1168.99 (mGy-cm)
[2020-12-22] MEDS: iohexol 300 mg/mL 100 mL Btl IV (15:51)
== END 2020-12-22 13:23 | disposition home or self-care (01) ==
LOC: RAD 13:27
PROVIDERS: PCP Nurse Practitioner Family; Visit Provider Internal Medicine Medical Oncology
DX: R74.8 Abnormal levels of other serum enzymes (principal); Z90.710 Acquired absence of both cervix and uterus; Z90.49 Acquired absence of other specified parts of digestive tract
CPT/HCPCS: 74177

== ENCOUNTER 2020-12-25 13:06 | Outpatient (CLI) | payer MEDICARE, MEDICAID, SELFPAY ==
--- NOTE | 2020-12-25 13:19 | USCV_ITS ---
Nancy Nichols Age: 40 Gender: F : 1980 Exam Date: 12/25/2020 13:28 Ordering Phys: Isaias Guillen MD Technologist: Exam Location: [facility] [place] Indication: TACH BP: 120 / 70 HR: 78 Rhythm: Sinus Technical Quality: Good MEASUREMENTS (Male / Female) Normal Values 2D ECHO LV Diastolic Diameter PLAX 3.7 cm 4.2 - 5.9 / 3.9 - 5.3 cm LV Systolic Diameter PLAX 2.6 cm IVS Diastolic Thickness 1.1 cm 0.6 - 1.0 / 0.6 - 0.9 cm IVS Systolic Thickness 1.3 cm LVPW Diastolic Thickness 0.9 cm 0.6 - 1.0 / 0.6 - 0.9 cm LVPW Systolic Thickness 1.3 cm LVOT Diameter 2.0 cm LV Ejection Fraction 2D Teich 42.0 % LV Ejection Fraction MOD 2C 80.2 % LV Ejection Fraction 2C AL 80.1 % LA Diameter 2.4 cm LA Width 2.9 cm LA Height 4.4 cm RA Width 3.1 cm RA Height 4.0 cm Aorta at Sinotubular Diameter 2.3 cm DOPPLER AV Peak Velocity 136.0 cm/s LVOT Peak Velocity 119.0 cm/s AV Area Cont Eq vti 3.1 cm squared AV Area Cont Eq pk 2.7 cm squared MV Area PHT 5.0 cm squared Mitral E to A Ratio 1.4 MV E' Velocity 48.0 cm/s Mitral E to MV E' Ratio 5.8 Mitral E to LV E' Lateral Ratio 4.9 Mitral E to LV E' Septal Ratio 7.3 TR Peak Velocity 123.0 cm/s TR Peak Gradient 6.1 mmHg TV Peak E Velocity 62.0 cm/s PV Peak Velocity 80.0 cm/s FINDINGS Left Ventricle Normal left ventricular size, systolic function and wall thickness, with no regional wall motion abnormalities. Left ventricular ejection fraction is estimated at 65 %. Normal diastolic function. Right Ventricle Normal right ventricular size and systolic function. RVSP could not be calculated due to incomplete tricuspid regurgitation velocity profile. Right Atrium Normal right atrial size. Left Atrium Normal left atrial size. Mitral Valve Structurally normal mitral valve. No mitral valve stenosis. Trace mitral valve regurgitation. Aortic Valve Aortic valve not well visualized. No aortic valve stenosis. No aortic valve regurgitation. Tricuspid Valve Structurally normal tricuspid valve. No tricuspid valve stenosis. No significant tricuspid valve regurgitation. Pulmonic Valve Pulmonic valve not well visualized. No significant pulmonary valve regurgitation. Pericardium No pericardial effusion. Aorta Normal size aortic root and proximal ascending aorta. CONCLUSIONS 1. Normal left ventricular size, systolic function and wall thickness, with no regional wall motion abnormalities. Left ventricular ejection fraction is estimated at 65 %. Normal diastolic function. 2. No significant valvular abnormality based on the study. 3. No pericardial effusion. 4. No prior similstudies. Destini Henderson MD (Electronically Signed) Final Date: 26 December 2020 15:31 S
== END 2020-12-25 13:07 | disposition home or self-care (01) ==
LOC: RAD 13:12
PROVIDERS: PCP Nurse Practitioner Family; Visit Provider Internal Medicine Medical Oncology
DX: R00.0 Tachycardia, unspecified (principal)
CPT/HCPCS: 93306

== ENCOUNTER 2021-02-14 12:49 | Emergency (ER) | payer MEDICARE, MEDICAID, SELFPAY ==
[2021-02-14] VITALS (8 sets, daily range): BP systolic 84–123; BP diastolic 56–102; PULSE 112–122; RESP 16–22; TEMP 36.6–36.7; O2SAT 95–97
--- NOTE | 2021-02-14 12:59 | ED_ITS ---
HPI - Altered Mental Status General: Chief Complaint: Altered Mental Status Stated Complaint: AMS Time Seen by Provider: 02/14/21 12:59 History of Present Illness: HPI narrative: Ms Nichols is a 40-year-old lady with significant past medical history of significant alcohol abuse who presents emergency department due to altered mental status. She is accompanied by her mother who provides some supplemental history. Reportedly the patient consumes approximately a pint and a case of beer per day. She started acting drunk despite her mother tried to help her detox last night. Additionally she was unsteady on her feet. Patient's mother noticed bloodshot eyes which have since progressed. Additionally speech became garbled. She reportedly frequently uses Tylenol PM and does not specifically know how much she takes. History is otherwise limited by the patient's current mental status and acuity of condition MD complaint: altered mental status and decreased responsiveness Review of Systems Narrative: Unable to obtain due to altered mental status [facility] ED Supplemental [facility] Information: Limited history secondary to mental status. Physical Exam Narrative: EXAM NARRATIVE: GENERAL/CONSTITUTIONAL -ill-appearing. Patient with decreased responsiveness. Jaundice present Eyes - PERRL, there is significant subconjunctival hemorrhage. ENMT - Atraumatic external nose and ears. Moist mucous membranes. Scattered contusions to the face including right periorbital ecchymosis. NECK - supple. trachea midline CARDIOVASCULAR -tachycardic rate and regular rhythm. Peripheral pulses 2+ and equal RESPIRATORY -clear to auscultation bilaterally. No retractions or accessory muscle use. ABDOMEN/GI -mild diffuse tenderness to palpation/Nondistended. No tenderness to percussion or evidence of peritonitis MSK - Extremities without obvious deformity or tenderness to palpation. Bruising noted. SKIN -cool, Dry NEURO -decreased level of consciousness. Moves all extremities spontaneously PSYCH -impaired memory and cognition Course ED course: - Patient was seen and evaluated by me at bedside - Patient placed on cardiac monitors, IV access obtained - Initial evaluation notable for ill appearance, decreased level of co nsciousness. Patient is jaundiced has subconjunctival hemorrhage, mild anasarca, and scattered bruising. - Labs and imaging obtained and reviewed - Initial blood glucose noted to be low and a D50 bolus was ordered. This markedly improved the patient's mental status and she was alert and communicative though still appears encephalopathic. - Labs notable for no leukocytosis, mild macrocytic anemia. Marked thrombocytopenia noted of unclear etiology. Metabolic panel notable for hyponatremia, hypochloremia, elevated anion gap, elevated creatinine. Marked transaminitis noted. - The exact etiology of the patient's marked thrombocytopenia somewhat unclear as as recently as 2 months ago she had normal levels and it does not appear that she has a history of thrombocytopenia. Given combination of altered mental status, though hypoglycemia initially was responsible, and marked thrombocytopenia additional labs ordered for concern over TTP. Patient is low risk via plasmic score for TTP. The patient is markedly coagulopathic with an INR of 12.5. - Imaging notable for no acute intracranial hemorrhage. Given abdominal pain abdominal CT ordered with perhaps mild duodenitis. No lobar consolidation noted on chest x-ray. -I believe that the patient's primary vital sign derangement and pathology is acute liver failure however in the context of critical illness antibiotics were given. Patient presents a challenge regarding volume resuscitation. She will get a fair amount of volume via medications and other drips including D5 NS due to persistent hypoglycemia requiring D50 boluses. On the other hand the patient has marked thrombocytopenia and is at risk for dilution and spontaneous hemorrhage which is already seen in the patient's subconjunctiva. As such, 30 cc/kg bolus deferred at this time. Due to patient's mental status I am unable to discuss risks and benefits of this choice with her and relied on best clinical judgment. - Given transaminitis and history of likely chronic Tylenol toxicity even though Tylenol level is not particularly elevated NAC infusions started. - I ordered platelets for transfusion given likely delusional effect and likely further thrombocytopenia however our blood bank does not stock these and had to order some. - Upon serial assessment the patient remained critically ill. She has acute hepatic failure in the context of chronic alcohol abuse as well as Tylenol toxicity. - Patient's mother was updated at bedside including the grave prognosis of the patient's illness. Meld NA score places patient's mortality at approximately 66% not accounting for other factors which likely places the patient's mortality risk higher. - The patient requires hepatology expertise and therefore will be transferred. She was accepted for ICU admission to the [facility] in [place]. Given critical illness air transport is most appropriate - Patient was transported from the emergency department by air EVAC team in critical condition. Vital Signs: Vital signs: Vital Signs Temperature 98.1 F 02/14/21 20:21 Pulse Rate 118 H 02/14/21 20:21 Respiratory Rate 18 02/14/21 20:21 Blood Pressure 84/56 02/14/21 20:21 Pulse Oximetry 96 02/14/21 19:47 MDM - Altered Mental Status Medical Records: Attestation: I reviewed the patient's medical records. Lab Data: Attestation: I reviewed the patient's lab results. Labs: Lab Results 02/14/21 02/14/21 02/14/21 Range/Units 13:05 13:05 13:05 WBC 6.8 (4.0-10.0) 10^3/ uL RBC 3.11 L (4.1-5.3) 10^6/u L Hgb 11.3 L (11.5-15.3) g/dL Hct 33.0 L (37.0-47.0) % MCV 106.1 H (81-99) fl MCH 36.3 H (28.0-34.0) pg MCHC 34.2 (30.0-36.0) g/dL RDW 15.9 H (12.1-15.1) % Plt Count 15 L* (130-400) 10^3/c mm MPV 11.6 H (7.4-10.4) fL Neut % (Auto) 91.8 % Lymph % (Auto) 5.5 % Cochran % (Auto) 0.7 % Eos % (Auto) 0.1 % Baso % (Auto) 0.4 % Reticulocyte % (Au to) (0.5-2.0) % Neut # (Auto) 6.22 (1.8-7.7) 10^3/u L Lymph # (Auto) 0.4 L (0.8-4.8) 10^3/u L Cochran # (Auto) 0.1 L (0.2-0.9) 10^3/u L Eos # (Auto) 0.0 (0.0-0.8) 10^3/u L Baso # (Auto) 0.0 (0.0-0.1) 10^3/u L Nucleated RBC % (a uto) 0.4 % Nucleated RBCs # 0.0 /100WBC Haptoglobin (30-200) mg/L PT (12.1-14.9) SECO NDS INR (0.8-1.2) APTT (23.9-36.7) SECO NDS D-Dimer (0-0.59) ug/mIFE U Sodium 124 L (136-145) mmol/L Potassium 4.3 (3.5-5.1) mmol/L Chloride 85 L (98-107) mmol/L Carbon Dioxide 18 L (22-29) mmol/L Anion Gap 25.3 H (5-19) BUN 15 (6-20) mg/dL Creatinine 1.4 H (0.5-0.9) mg/dL GFR Calculation 41.4 L (90-130) mL/min Glucose 6 L* (65-115) mg/dL POC Glucose (70-110) mg/dL Calculated Osmolal ity 254 L (285-295) mOsm/k g Calcium 7.9 L (8.5-10.5) mg/dL Magnesium 1.7 (1.7-2.3) mg/dL Total Bilirubin 6.5 H (0.15-1.2) mg/dL Direct Bilirubin (0.00-0.30) mg/d L AST 61271 H (0-32) U/L ALT 2686 H (0-33) U/L Alkaline Phosphata se 284 H (35-105) IU/L Ammonia (11-51) umol/L Lactate Dehydrogen ase (135-214) U/L Total Protein 5.4 L (6.6-8.7) g/dL Albumin 3.3 L (3.5-5.2) g/dL Globulin 2.1 (1.3-4.6) g/dL Procalcitonin 5.72 H (0-0.5) ng/mL TSH 0.38 (0.27-4.20) uIU/ mL HCG, Qual Negative (Negative) Urine Color (Yellow) Urine Appearance (CLEAR) Urine pH (5-7) Ur Specific Gravit y (1.005-1.030) Urine Protein (Negative) Urine Glucose (UA) (Normal) Urine Ketones (Negative) Urine Blood (Negative) Urine Nitrate (Negative) Urine Bilirubin (Negative) Urine Urobilinogen (Negative) mg/dL Ur Leukocyte Loren ase (Negative) Urine RBC (0-2) /hpf Urine WBC (0-5) /hpf Ur Squamous Epith Cells (0-5) /hpf Amorphous Sediment Urine Bacteria (NONE) /hpf Salicylates 1.1 L (3-10) mg/dL Urine Opiates Scre en (Negative) ng/mL Acetaminophen 39.9 H (10-30) ug/mL Ur Barbiturates Sc reen (Negative) ng/mL Ur Phencyclidine S crn (Negative) ng/mL Ur Amphetamines Sc reen (Negative) ng/mL U Benzodiazepines Scrn (Negative) ng/mL Urine Cocaine Scre en (Negative) ng/mL U Marijuana (THC) Screen (Negative) ng/mL Ethyl Alcohol < 10 (0-10) mg/dL Hepatitis A IgM Ab (Nonreactive) Hep Bs Antigen (Nonreactive) Hep B Core IgM Ab (Nonreactive) Hepatitis C Antibo dy (Nonreactive) SARS-CoV-2 Ag (Rap id) (Negative) Blood Type Rho(D) Type Antibody Screen 02/14/21 02/14/21 02/14/21 Range/Units 13:05 13:05 13:20 WBC (4.0-10.0) 10^3/ uL RBC (4.1-5.3) 10^6/u L Hgb (11.5-15.3) g/dL Hct (37.0-47.0) % MCV (81-99) fl MCH (28.0-34.0) pg MCHC (30.0-36.0) g/dL RDW (12.1-15.1) % Plt Count (130-400) 10^3/c mm MPV (7.4-10.4) fL Neut % (Auto) % Lymph % (Auto) % Cochran % (Auto) % Eos % (Auto) % Baso % (Auto) % Reticulocyte % (Au to) (0.5-2.0) % Neut # (Auto) (1.8-7.7) 10^3/u L Lymph # (Auto) (0.8-4.8) 10^3/u L Cochran # (Auto) (0.2-0.9) 10^3/u L Eos # (Auto) (0.0-0.8) 10^3/u L Baso # (Auto) (0.0-0.1) 10^3/u L Nucleated RBC % (a uto) % Nucleated RBCs # /100WBC Haptoglobin 45.0 (30-200) mg/L PT 95.70 H (12.1-14.9) SECO NDS INR 12.50 H* (0.8-1.2) APTT 48.8 H (23.9-36.7) SECO NDS D-Dimer (0-0.59) ug/mIFE U Sodium (136-145) mmol/L Potassium (3.5-5.1) mmol/L Chloride (98-107) mmol/L Carbon Dioxide (22-29) mmol/L Anion Gap (5-19) BUN (6-20) mg/dL Creatinine (0.5-0.9) mg/dL GFR Calculation (90-130) mL/min Glucose (65-115) mg/dL POC Glucose (70-110) mg/dL Calculated Osmolal ity (285-295) mOsm/k g Calcium (8.5-10.5) mg/dL Magnesium (1.7-2.3) mg/dL Total Bilirubin (0.15-1.2) mg/dL Direct Bilirubin 5.00 H (0.00-0.30) mg/d L AST (0-32) U/L ALT (0-33) U/L Alkaline Phosphata se (35-105) IU/L Ammonia (11-51) umol/L Lactate Dehydrogen ase > 6075 H (135-214) U/L Total Protein (6.6-8.7) g/dL Albumin (3.5-5.2) g/dL Globulin (1.3-4.6) g/dL Procalcitonin (0-0.5) ng/mL TSH (0.27-4.20) uIU/ mL HCG, Qual (Negative) Urine Color (Yellow) Urine Appearance (CLEAR) Urine pH (5-7) Ur Specific Gravit y (1.005-1.030) Urine Protein (Negative) Urine Glucose (UA) (Normal) Urine Ketones (Negative) Urine Blood (Negative) Urine Nitrate (Negative) Urine Bilirubin (Negative) Urine Urobilinogen (Negative) mg/dL Ur Leukocyte Loren ase (Negative) Urine RBC (0-2) /hpf Urine WBC (0-5) /hpf Ur Squamous Epith Cells (0-5) /hpf Amorphous Sediment Urine Bacteria (NONE) /hpf Salicylates (3-10) mg/dL Urine Opiates Scre en (Negative) ng/mL Acetaminophen (10-30) ug/mL Ur Barbiturates Sc reen (Negative) ng/mL Ur Phencyclidine S crn (Negative) ng/mL Ur Amphetamines Sc reen (Negative) ng/mL U Benzodiazepines Scrn (Negative) ng/mL Urine Cocaine Scre en (Negative) ng/mL U Marijuana (THC) Screen (Negative) ng/mL Ethyl Alcohol (0-10) mg/dL Hepatitis A IgM Ab Non-reactive (Nonreactive) Hep Bs Antigen Non-reactive (Nonreactive) Hep B Core IgM Ab Non-reactive (Nonreactive) Hepatitis C Antibo dy Non-reactive (Nonreactive) SARS-CoV-2 Ag (Rap id) (Negative) Blood Type Rho(D) Type Antibody Screen 02/14/21 02/14/21 02/14/21 Range/Units 13:20 13:20 13:20 WBC (4.0-10.0) 10^3/ uL RBC (4.1-5.3) 10^6/u L Hgb (11.5-15.3) g/dL Hct (37.0-47.0) % MCV (81-99) fl MCH (28.0-34.0) pg MCHC (30.0-36.0) g/dL RDW (12.1-15.1) % Plt Count (130-400) 10^3/c mm MPV (7.4-10.4) fL Neut % (Auto) % Lymph % (Auto) % Cochran % (Auto) % Eos % (Auto) % Baso % (Auto) % Reticulocyte % (Au to) 2.4 H (0.5-2.0) % Neut # (Auto) (1.8-7.7) 10^3/u L Lymph # (Auto) (0.8-4.8) 10^3/u L Cochran # (Auto) (0.2-0.9) 10^3/u L Eos # (Auto) (0.0-0.8) 10^3/u L Baso # (Auto) (0.0-0.1) 10^3/u L Nucleated RBC % (a uto) % Nucleated RBCs # /100WBC Haptoglobin (30-200) mg/L PT (12.1-14.9) SECO NDS INR (0.8-1.2) APTT (23.9-36.7) SECO NDS D-Dimer 18.42 H (0-0.59) ug/mIFE U Sodium (136-145) mmol/L Potassium (3.5-5.1) mmol/L Chloride (98-107) mmol/L Carbon Dioxide (22-29) mmol/L Anion Gap (5-19) BUN (6-20) mg/dL Creatinine (0.5-0.9) mg/dL GFR Calculation (90-130) mL/min Glucose (65-115) mg/dL POC Glucose (70-110) mg/dL Calculated Osmolal ity (285-295) mOsm/k g Calcium (8.5-10.5) mg/dL Magnesium (1.7-2.3) mg/dL Total Bilirubin (0.15-1.2) mg/dL Direct Bilirubin (0.00-0.30) mg/d L AST (0-32) U/L ALT (0-33) U/L Alkaline Phosphata se (35-105) IU/L Ammonia 224 H (11-51) umol/L Lactate Dehydrogen ase (135-214) U/L Total Protein (6.6-8.7) g/dL Albumin (3.5-5.2) g/dL Globulin (1.3-4.6) g/dL Procalcitonin (0-0.5) ng/mL TSH (0.27-4.20) uIU/ mL HCG, Qual (Negative) Urine Color (Yellow) Urine Appearance (CLEAR) Urine pH (5-7) Ur Specific Gravit y (1.005-1.030) Urine Protein (Negative) Urine Glucose (UA) (Normal) Urine Ketones (Negative) Urine Blood (Negative) Urine Nitrate (Negative) Urine Bilirubin (Negative) Urine Urobilinogen (Negative) mg/dL Ur Leukocyte Loren ase (Negative) Urine RBC (0-2) /hpf Urine WBC (0-5) /hpf Ur Squamous Epith Cells (0-5) /hpf Amorphous Sediment Urine Bacteria (NONE) /hpf Salicylates (3-10) mg/dL Urine Opiates Scre en (Negative) ng/mL Acetaminophen (10-30) ug/mL Ur Barbiturates Sc reen (Negative) ng/mL Ur Phencyclidine S crn (Negative) ng/mL Ur Amphetamines Sc reen (Negative) ng/mL U Benzodiazepines Scrn (Negative) ng/mL Urine Cocaine Scre en (Negative) ng/mL U Marijuana (THC) Screen (Negative) ng/mL Ethyl Alcohol (0-10) mg/dL Hepatitis A IgM Ab (Nonreactive) Hep Bs Antigen (Nonreactive) Hep B Core IgM Ab (Nonreactive) Hepatitis C Antibo dy (Nonreactive) SARS-CoV-2 Ag (Rap id) (Negative) Blood Type Rho(D) Type Antibody Screen 02/14/21 02/14/21 02/14/21 Range/Units 13:40 13:40 14:44 WBC (4.0-10.0) 10^3/ uL RBC (4.1-5.3) 10^6/u L Hgb (11.5-15.3) g/dL Hct (37.0-47.0) % MCV (81-99) fl MCH (28.0-34.0) pg MCHC (30.0-36.0) g/dL RDW (12.1-15.1) % Plt Count (130-400) 10^3/c mm MPV (7.4-10.4) fL Neut % (Auto) % Lymph % (Auto) % Cochran % (Auto) % Eos % (Auto) % Baso % (Auto) % Reticulocyte % (Au to) (0.5-2.0) % Neut # (Auto) (1.8-7.7) 10^3/u L Lymph # (Auto) (0.8-4.8) 10^3/u L Cochran # (Auto) (0.2-0.9) 10^3/u L Eos # (Auto) (0.0-0.8) 10^3/u L Baso # (Auto) (0.0-0.1) 10^3/u L Nucleated RBC % (a uto) % Nucleated RBCs # /100WBC Haptoglobin (30-200) mg/L PT (12.1-14.9) SECO NDS INR (0.8-1.2) APTT (23.9-36.7) SECO NDS D-Dimer (0-0.59) ug/mIFE U Sodium (136-145) mmol/L Potassium (3.5-5.1) mmol/L Chloride (98-107) mmol/L Carbon Dioxide (22-29) mmol/L Anion Gap (5-19) BUN (6-20) mg/dL Creatinine (0.5-0.9) mg/dL GFR Calculation (90-130) mL/min Glucose (65-115) mg/dL POC Glucose 52 L (70-110) mg/dL Calculated Osmolal ity (285-295) mOsm/k g Calcium (8.5-10.5) mg/dL Magnesium (1.7-2.3) mg/dL Total Bilirubin (0.15-1.2) mg/dL Direct Bilirubin (0.00-0.30) mg/d L AST (0-32) U/L ALT (0-33) U/L Alkaline Phosphata se (35-105) IU/L Ammonia (11-51) umol/L Lactate Dehydrogen ase (135-214) U/L Total Protein (6.6-8.7) g/dL Albumin (3.5-5.2) g/dL Globulin (1.3-4.6) g/dL Procalcitonin (0-0.5) ng/mL TSH (0.27-4.20) uIU/ mL HCG, Qual (Negative) Urine Color Dark yellow (Yellow) Urine Appearance Sl hazy (CLEAR) Urine pH 5 (5-7) Ur Specific Gravit y 1.020 (1.005-1.030) Urine Protein 1+ H (Negative) Urine Glucose (UA) Norm (Normal) Urine Ketones Negative (Negative) Urine Blood 2+ H (Negative) Urine Nitrate Negative (Negative) Urine Bilirubin 2+ H (Negative) Urine Urobilinogen 4 H (Negative) mg/dL Ur Leukocyte Loren ase Negative (Negative) Urine RBC 0-4 H (0-2) /hpf Urine WBC 10-15 H (0-5) /hpf Ur Squamous Epith Cells 0-4 H (0-5) /hpf Amorphous Sediment Not Reportable Urine Bacteria 4+ H (NONE) /hpf Salicylates (3-10) mg/dL Urine Opiates Scre en Negative (Negative) ng/mL Acetaminophen (10-30) ug/mL Ur Barbiturates Sc reen Negative (Negative) ng/mL Ur Phencyclidine S crn Negative (Negative) ng/mL Ur Amphetamines Sc reen Negative (Negative) ng/mL U Benzodiazepines Scrn Negative (Negative) ng/mL Urine Cocaine Scre en Negative (Negative) ng/mL U Marijuana (THC) Screen Negative (Negative) ng/mL Ethyl Alcohol (0-10) mg/dL Hepatitis A IgM Ab (Nonreactive) Hep Bs Antigen (Nonreactive) Hep B Core IgM Ab (Nonreactive) Hepatitis C Antibo dy (Nonreactive) SARS-CoV-2 Ag (Rap id) (Negative) Blood Type Rho(D) Type Antibody Screen 02/14/21 02/14/21 02/14/21 Range/Units 16:09 16:52 17:55 WBC (4.0-10.0) 10^3/ uL RBC (4.1-5.3) 10^6/u L Hgb (11.5-15.3) g/dL Hct (37.0-47.0) % MCV (81-99) fl MCH (28.0-34.0) pg MCHC (30.0-36.0) g/dL RDW (12.1-15.1) % Plt Count (130-400) 10^3/c mm MPV (7.4-10.4) fL Neut % (Auto) % Lymph % (Auto) % Cochran % (Auto) % Eos % (Auto) % Baso % (Auto) % Reticulocyte % (Au to) (0.5-2.0) % Neut # (Auto) (1.8-7.7) 10^3/u L Lymph # (Auto) (0.8-4.8) 10^3/u L Cochran # (Auto) (0.2-0.9) 10^3/u L Eos # (Auto) (0.0-0.8) 10^3/u L Baso # (Auto) (0.0-0.1) 10^3/u L Nucleated RBC % (a uto) % Nucleated RBCs # /100WBC Haptoglobin (30-200) mg/L PT (12.1-14.9) SECO NDS INR (0.8-1.2) APTT (23.9-36.7) SECO NDS D-Dimer (0-0.59) ug/mIFE U Sodium (136-145) mmol/L Potassium (3.5-5.1) mmol/L Chloride (98-107) mmol/L Carbon Dioxide (22-29) mmol/L Anion Gap (5-19) BUN (6-20) mg/dL Creatinine (0.5-0.9) mg/dL GFR Calculation (90-130) mL/min Glucose (65-115) mg/dL POC Glucose 33 L* (70-110) mg/dL Calculated Osmolal ity (285-295) mOsm/k g Calcium (8.5-10.5) mg/dL Magnesium (1.7-2.3) mg/dL Total Bilirubin (0.15-1.2) mg/dL Direct Bilirubin (0.00-0.30) mg/d L AST (0-32) U/L ALT (0-33) U/L Alkaline Phosphata se (35-105) IU/L Ammonia (11-51) umol/L Lactate Dehydrogen ase (135-214) U/L Total Protein (6.6-8.7) g/dL Albumin (3.5-5.2) g/dL Globulin (1.3-4.6) g/dL Procalcitonin (0-0.5) ng/mL TSH (0.27-4.20) uIU/ mL HCG, Qual (Negative) Urine Color (Yellow) Urine Appearance (CLEAR) Urine pH (5-7) Ur Specific Gravit y (1.005-1.030) Urine Protein (Negative) Urine Glucose (UA) (Normal) Urine Ketones (Negative) Urine Blood (Negative) Urine Nitrate (Negative) Urine Bilirubin (Negative) Urine Urobilinogen (Negative) mg/dL Ur Leukocyte Loren ase (Negative) Urine RBC (0-2) /hpf Urine WBC (0-5) /hpf Ur Squamous Epith Cells (0-5) /hpf Amorphous Sediment Urine Bacteria (NONE) /hpf Salicylates (3-10) mg/dL Urine Opiates Scre en (Negative) ng/mL Acetaminophen (10-30) ug/mL Ur Barbiturates Sc reen (Negative) ng/mL Ur Phencyclidine S crn (Negative) ng/mL Ur Amphetamines Sc reen (Negative) ng/mL U Benzodiazepines Scrn (Negative) ng/mL Urine Cocaine Scre en (Negative) ng/mL U Marijuana (THC) Screen (Negative) ng/mL Ethyl Alcohol (0-10) mg/dL Hepatitis A IgM Ab (Nonreactive) Hep Bs Antigen (Nonreactive) Hep B Core IgM Ab (Nonreactive) Hepatitis C Antibo dy (Nonreactive) SARS-CoV-2 Ag (Rap id) Negative (Negative) Blood Type O Positive Rho(D) Type Positive / 4+ Antibody Screen Negative 02/14/21 Range/Units 18:09 WBC (4.0-10.0) 10^3/ uL RBC (4.1-5.3) 10^6/u L Hgb (11.5-15.3) g/dL Hct (37.0-47.0) % MCV (81-99) fl MCH (28.0-34.0) pg MCHC (30.0-36.0) g/dL RDW (12.1-15.1) % Plt Count (130-400) 10^3/c mm MPV (7.4-10.4) fL Neut % (Auto) % Lymph % (Auto) % Cochran % (Auto) % Eos % (Auto) % Baso % (Auto) % Reticulocyte % (Au to) (0.5-2.0) % Neut # (Auto) (1.8-7.7) 10^3/u L Lymph # (Auto) (0.8-4.8) 10^3/u L Cochran # (Auto) (0.2-0.9) 10^3/u L Eos # (Auto) (0.0-0.8) 10^3/u L Baso # (Auto) (0.0-0.1) 10^3/u L Nucleated RBC % (a uto) % Nucleated RBCs # /100WBC Haptoglobin (30-200) mg/L PT (12.1-14.9) SECO NDS INR (0.8-1.2) APTT (23.9-36.7) SECO NDS D-Dimer (0-0.59) ug/mIFE U Sodium (136-145) mmol/L Potassium (3.5-5.1) mmol/L Chloride (98-107) mmol/L Carbon Dioxide (22-29) mmol/L Anion Gap (5-19) BUN (6-20) mg/dL Creatinine (0.5-0.9) mg/dL GFR Calculation (90-130) mL/min Glucose (65-115) mg/dL POC Glucose 152 H (70-110) mg/dL Calculated Osmolal ity (285-295) mOsm/k g Calcium (8.5-10.5) mg/dL Magnesium (1.7-2.3) mg/dL Total Bilirubin (0.15-1.2) mg/dL Direct Bilirubin (0.00-0.30) mg/d L AST (0-32) U/L ALT (0-33) U/L Alkaline Phosphata se (35-105) IU/L Ammonia (11-51) umol/L Lactate Dehydrogen ase (135-214) U/L Total Protein (6.6-8.7) g/dL Albumin (3.5-5.2) g/dL Globulin (1.3-4.6) g/dL Procalcitonin (0-0.5) ng/mL TSH (0.27-4.20) uIU/ mL HCG, Qual (Negative) Urine Color (Yellow) Urine Appearance (CLEAR) Urine pH (5-7) Ur Specific Gravit y (1.005-1.030) Urine Protein (Negative) Urine Glucose (UA) (Normal) Urine Ketones (Negative) Urine Blood (Negative) Urine Nitrate (Negative) Urine Bilirubin (Negative) Urine Urobilinogen (Negative) mg/dL Ur Leukocyte Loren ase (Negative) Urine RBC (0-2) /hpf Urine WBC (0-5) /hpf Ur Squamous Epith Cells (0-5) /hpf Amorphous Sediment Urine Bacteria (NONE) /hpf Salicylates (3-10) mg/dL Urine Opiates Scre en (Negative) ng/mL Acetaminophen (10-30) ug/mL Ur Barbiturates Sc reen (Negative) ng/mL Ur Phencyclidine S crn (Negative) ng/mL Ur Amphetamines Sc reen (Negative) ng/mL U Benzodiazepines Scrn (Negative) ng/mL Urine Cocaine Scre en (Negative) ng/mL U Marijuana (THC) Screen (Negative) ng/mL Ethyl Alcohol (0-10) mg/dL Hepatitis A IgM Ab (Nonreactive) Hep Bs Antigen (Nonreactive) Hep B Core IgM Ab (Nonreactive) Hepatitis C Antibo dy (Nonreactive) SARS-CoV-2 Ag (Rap id) (Negative) Blood Type Rho(D) Type Antibody Screen Critical Care Time Critical Care Time: Critical Care Time: Yes Total Critical Care Time: 180 Attestation: This case had a high probability of a clinically significant, sudden, or life threatening deterioration of this patient's condition which required my full and direct attention, intervention and personal management. Discharge Plan Discharge Patient Disposition: Xfer Short-Term Hosp Clinical Impression: Acute hepatic failure, Alcohol abuse, Altered mental status, Hypoglycemia, Hyponatremia, Sepsis, Thrombocytopenia, Elevated INR, Tylenol toxicity Condition: Critical Referrals: Enriquez,NICKO Burnham [Primary Care Provider] - Coding Level of Care Code ED Rn Perioperative for Angel Sanchez
--- NOTE | 2021-02-14 13:05 | XRR_ITS ---
PROCEDURE INFORMATION: Exam: XR Chest Exam date and time: 02/14/2021 1:05 PM Age: 40 years old Clinical indication: Other: AMS TECHNIQUE: Imaging protocol: XR of the chest. Views: 1 view. COMPARISON: CR Chest 1 [place] [id number] 04/06/2017 1:23 AM FINDINGS: Lungs: The lungs are clear. Pleural spaces: Unremarkable. No pleural effusion. No pneumothorax. Heart/Mediastinum: Unremarkable. No cardiomegaly. Bones/joints: Mild dextrocurvature of the mid to lower thoracic spine is appreciated. No acute fracture is detected. XR/XR chest 1V portable [id number] IMPRESSION: No acute cardiopulmonary abnormality.
[2021-02-14 13:16] LABS: Basophils % 0.4 %; Eosinophils % 0.1 %; Hemoglobin 11.3 g/dL (11.5-15.3); Lymphocytes # 0.4 10^3/uL (0.8-4.8); Lymphocytes % 5.5 %; Mean Corpuscular HGB Conc 34.2 g/dL (30.0-36.0); Mean Corpuscular Hemoglobin 36.3 pg (28.0-34.0); Mean Corpuscular Volume 106.1 fl (81-99); Mean Platelet Volume 11.6 fL (7.4-10.4); Monocytes # 0.1 10^3/uL (0.2-0.9); Monocytes % 0.7 %; Neutrophils # 6.22 10^3/uL (1.8-7.7); Neutrophils % 91.8 %; Nucleated Red Blood Cells % 0.4 %; Red Blood Count 3.11 10^6/uL (4.1-5.3); Red Cell Distribution Width 15.9 % (12.1-15.1); White Blood Count 6.8 10^3/uL (4.0-10.0)
--- NOTE | 2021-02-14 13:23 | CTR_ITS ---
PROCEDURE INFORMATION: Exam: CT Head Without Contrast Exam date and time: 02/14/2021 1:23 PM Age: 40 years old Clinical indication: Altered mental status/memory loss; Confusion or disorientation; Additional info: AMS TECHNIQUE: Imaging protocol: Computed tomography of the head without contrast. Radiation optimization: All CT scans at this facility use at least one of these dose optimization techniques: automated exposure control; mA and/or kV adjustment per patient size (includes targeted exams where dose is matched to clinical indication); or iterative reconstruction. COMPARISON: CT head wo con* [id number] 04/06/2017 12:03 AM RADIATION DOSE METRICS: Total DLP (mGy-cm): 813.44 FINDINGS: Brain: Normal. No hemorrhage. Unremarkable white matter. No mass effect. Cerebral ventricles: No ventriculomegaly. Paranasal sinuses: Visualized sinuses are unremarkable. No fluid levels. Mastoid air cells: Visualized mastoid air cells are well aerated. Bones/joints: Unremarkable. No acute fracture. Soft tissues: Unremarkable. CT/CT head wo con* [id number] IMPRESSION: No acute intracranial abnormality. Radiation Dose CTDIVOL = (mGy): DLP = 813.44 (mGy-cm)
--- NOTE | 2021-02-14 13:25 | PC.NURSE ---
NOTIFIED DR GOLDMAN OF LOW BLOOD SUGAR RESULT UNREPORTABLE FSBS. NEW ORDERS [facility].
[2021-02-14] MEDS: dextrose 50% syringe 50 mL IVP ×2 (13:31→16:19)
[2021-02-14] MEDS: sodium chloride 0.9% 1,000 ML 999 ML IV (13:34)
[2021-02-14 13:38] LABS: HCG, Serum Qual Negative (Negative)
[2021-02-14 13:49] LABS: Partial Thromboplastin Time 48.8 SECONDS (23.9-36.7)
[2021-02-14 13:53] LABS: Ammonia 224 umol/L (11-51)
[2021-02-14 13:53] LABS: Procalcitonin 5.72 ng/mL (0-0.5); Thyroid Stimulating Hormone 0.38 uIU/mL (0.27-4.20)
--- NOTE | 2021-02-14 13:53 | ECG_ITS ---
[facility] Test Date: 2021-02-14 Pat Name: Nancy Nichols Department: Room: Gender: Female Client Support Representative: : 1980 Requested By: Malachi Alcala Order Number: [id number] Katelynn MD: Porfirio Lebron M.D. Measurements Intervals [place] Rate: 105 P: 64 HI: 112 QRS: 40 QRSD: 94 T: 42 QT: 353 QTc: 467 Interpretive Statements SINUS TACHYCARDIA WITH SHORT HI INTERVAL POSSIBLE LEFT ATRIAL ENLARGEMENT [-0.1mV P-WAVE IN V1/V2] POSSIBLE RIGHT VENTRICULAR CONDUCTION DELAY [RSR (QR) IN V1/V2] ABNORMAL RHYTHM ECG Compared to ECG 09/05/2020 10:16:53 Short HI interval now present Sinus rhythm no longer present Electronically Signed On 02-15-2021 16:24:57 CDT by Porfirio Lebron M.D. [id number]
[2021-02-14 14:00] LABS: Platelet Count 15 10^3/cmm (130-400)
[2021-02-14 14:00] LABS: Amphetamines Screen Urine Negative (Negative); Barbiturates Screen Urine Negative (Negative); Benzodiazepines Screen Urine Negative (Negative); Cocaine Screen Urine Negative (Negative); Opiate Screen Urine Negative (Negative); PCP Screen Urine Negative (Negative); THC Screen Urine Negative (Negative)
[2021-02-14 14:01] LABS: Slide Review Slide Review Perform
[2021-02-14 14:04] LABS: Acetaminophen 39.9 ug/mL (10-30); Albumin Level 3.3 g/dL (3.5-5.2); Alkaline Phosphatase 284 IU/L (35-105); Anion Gap 25.3 (5-19); Blood Urea Nitrogen 15 mg/dL (6-20); Calcium 7.9 mg/dL (8.5-10.5); Carbon Dioxide 18 mmol/L (22-29); Chloride 85 mmol/L (98-107); Globulin 2.1 g/dL (1.3-4.6); Glomerular Filtration Rate 41.4 mL/min (90-130); Magnesium 1.7 mg/dL (1.7-2.3); Potassium 4.3 mmol/L (3.5-5.1); Salicylate 1.1 mg/dL (3-10); Sodium 124 mmol/L (136-145); Total Bilirubin 6.5 mg/dL (0.15-1.2); Total Protein 5.4 g/dL (6.6-8.7)
[2021-02-14 14:15] LABS: Alanine Aminotransferase 2686 U/L (0-33)
[2021-02-14 14:34] LABS: Urine Appearance SL Hazy (CLEAR); Urine Color Dark Yellow (Yellow); pH Urine 5 (5-7)
[2021-02-14 14:35] LABS: Add Urine Microscopic? YES; Bacteria Urine 4+ /hpf; Bilirubin Urine 2+ (Negative); Blood Urine 2+ (Negative); Glucose Urine UA Norm (Normal); Ketones Urine Negative (Negative); Leukocyte Esterase Urine Negative (Negative); Nitrate Urine Negative (Negative); Protein Urine 1+ (Negative); RBC Urine 0-4 /hpf (0-2); Squamous Epithelial Cell Urine 0-4 /hpf (0-5); Urobilinogen Urine 4 mg/dL (Negative)
[2021-02-14 14:36] LABS: Add Urine Culture? Yes
[2021-02-14 14:42] LABS: Alcohol Level < 10 mg/dL (0-10); Aspartate Amino Transferase 13475 U/L (0-32); Osmolality Calculated 254 mOsm/kg (285-295)
[2021-02-14 14:44] LABS: Glucose 6 mg/dL (65-115)
[2021-02-14 14:47] LABS: Glucose Point of Care 52 mg/dL (70-110)
--- NOTE | 2021-02-14 15:09 | CTR_ITS ---
PROCEDURE INFORMATION: Exam: CT Abdomen And Pelvis With Contrast Exam date and time: 02/14/2021 3:09 PM Age: 40 years old Clinical indication: Abdominal pain; Generalized; Prior surgery; Surgery date: 6+ months; Surgery type: Gastric bypass; Additional info: Abdominal pain, sepsis TECHNIQUE: Imaging protocol: Computed tomography of the abdomen and pelvis with contrast. Radiation optimization: All CT scans at this facility use at least one of these dose optimization techniques: automated exposure control; mA and/or kV adjustment per patient size (includes targeted exams where dose is matched to clinical indication); or iterative reconstruction. Contrast material: VISIPAQUE 320; Contrast volume: 95 ml; Contrast route: INTRAVENOUS (IV); COMPARISON: CT abdomen pelvis w con* [id number] 12/22/2020 3:47 PM RADIATION DOSE METRICS: Total DLP (mGy-cm): 1299.28 FINDINGS: Liver: The liver is mildly enlarged and demonstrates mild fatty infiltration changes. Gallbladder and bile ducts: The gallbladder has been removed. No biliary ductal dilatation. Pancreas: Normal. No ductal dilation. Spleen: Normal. No splenomegaly. Adrenal glands: Normal. No mass. Kidneys and ureters: The kidneys appear normal. No hydronephrosis. Stomach and bowel: Surgical changes of gastric bypass are appreciated. Short segment small bowel intussusception is present in the left aspect of the abdomen near the jejujejunostomy site. No intestinal obstruction. Mild periduodenal fat stranding is seen in the 2nd to 3rd portion of the duodenum, which extends into the right anterior perinephric space. Appendix: No evidence of appendicitis. Intraperitoneal space: Unremarkable. No free air. No significant fluid collection. Vasculature: Unremarkable. No abdominal aortic aneurysm. Lymph nodes: Unremarkable. No enlarged lymph nodes. Urinary bladder: Unremarkable as visualized. Reproductive: The uterus is absent. Bones/joints: No acute fracture. Soft tissues: Unremarkable. CT/CT abdomen pelvis w con* [id number] IMPRESSION: 1. Possible mild duodenitis. 2. Mild hepatomegaly and hepatic steatosis. Radiation Dose CTDIVOL = (mGy): DLP = 1299.28 (mGy-cm)
[2021-02-14] MEDS: dextrose 5%-sod chloride 0.9% 1,000 ML 125 ML IV (15:10)
[2021-02-14] MEDS: cefTRIAXone 2,000 MG in sodium chloride 0.9% (plus) 50 ML 100 MG IV (15:12)
[2021-02-14] MEDS: iodixanol 320 mg/mL 100mL Btl IV (15:37)
[2021-02-14 16:13] LABS: Glucose Point of Care 33 mg/dL (70-110)
[2021-02-14 16:28] LABS: Reticulocyte % 2.4 % (0.5-2.0)
[2021-02-14 16:31] LABS: LAB Peripheral Smear Sent for Review
[2021-02-14 16:44] LABS: D Dimer 18.42 ug/mIFEU (0-0.59)
[2021-02-14 17:13] LABS: Hepatitis A Antibody IgM Non-Reactive (Nonreactive); Hepatitis B Core IgM Non-Reactive (Nonreactive); Hepatitis B Surface Antigen Non-Reactive (Nonreactive); Hepatitis C Virus Antibody Non-Reactive (Nonreactive)
[2021-02-14] MEDS: ACETYLCYSTEINE IV (17:36)
[2021-02-14] MEDS: DEXTROSE 5% IV (17:36)
[2021-02-14] MEDS: folic acid 1 mg Tablet PO (17:44)
[2021-02-14] MEDS: metroNIDAZOLE IV 500 MG/100 ML PREMIX 100 MG IV (18:05)
[2021-02-14 18:12] LABS: Glucose Point of Care 152 mg/dL (70-110)
[2021-02-14] MEDS: fentaNYL 50 mcg/mL INJ 2mL 25 MCG IVP ×2 (18:36→19:26)
[2021-02-14] MEDS: ondansetron 2 mg/ML SDV 2 mL 8 MG IVP (18:36)
[2021-02-14 18:43] LABS: SARS Covid-2 Antigen Negative (Negative)
--- NOTE | 2021-02-14 19:54 | PC.NURSE ---
[facility] transport team here; report given and care turned over
== END 2021-02-14 20:35 | disposition short-term general hospital (02) ==
PROVIDERS: Emergency Provider Emergency Medicine; PCP Nurse Practitioner Family
DX: K72.00 Acute and subacute hepatic failure without coma (principal); A41.9 Sepsis, unspecified organism; E16.2 Hypoglycemia, unspecified; E87.1 Hypo-osmolality and hyponatremia; D69.6 Thrombocytopenia, unspecified; R41.82 Altered mental status, unspecified; T39.1X5A Adverse effect of 4-Aminophenol derivatives, initial encounter; D53.9 Nutritional anemia, unspecified; E87.8 Other disorders of electrolyte and fluid balance, not elsewhere classified; R74.01 Elevation of levels of liver transaminase levels; R79.1 Abnormal coagulation profile
CPT/HCPCS: 36416; 36430; 70450; 71045; 74177; 80053; 80074; 80306; 80307; 80500; 81001; 82140; 82248; 82962; 83010; 83615; 83735; 84145; 84443; 84703; 85025; 85045; 85378; 85610; 85730; 86850; 86900; 87040; 87077; 87086; 87186; 87426; 93005; 96365; 96367; 96375; 99291; J0132; J0696; J2405; J3010; J3411; J7030; P9016; Q9967; S0030